=== PATIENT | female | born 1965 | race Caucasian/White ===

== ENCOUNTER 2018-05-13 10:07 | Emergency (ER) | payer MEDICARE, MEDICAID, SELFPAY ==
[2018-05-13 10:21] VITALS: BP 146/110; PULSE 85; RESP 18; TEMP 36.4; O2SAT 96
--- NOTE | 2018-05-13 11:25 | DI.RAD_ITS ---
SYMPTOMS/DIAGNOSIS: FEVER, COUGH PA AND LATERAL CHEST: The heart is normal in size. The lungs are clear. The mediastinal structures and pleura appear intact. CONCLUSION: Normal chest.
--- NOTE | 2018-05-13 11:46 | ED.GENADUL_ITS ---
Discharge Plan Disposition Patient Disposition: HOME Condition: Stable Discharge Details Chief Complaint: RespSymp Clinical Impression: Infection, respiratory tract Primary Care Provider: Jo Valles ED Provider: Jeremias Rocha Home Meds and New Rx's Prescriptions: New prednisone 20 mg tablet 20 mg PO DAILY Qty: 8 RF: 0 doxycycline hyclate 100 mg tablet 100 mg PO BID Qty: 14 RF: 0 benzonatate 200 mg capsule 200 mg PO TID PRN (Reason: cough) Qty: 30 RF: 0 Continue medroxyprogesterone [Depo-Provera] 150 MG/1 ML suspension 150 mg IM Q 12 WEEKS Qty: 1 RF: 0 nicotine [Nicoderm CQ] 1 EACH patch 24 hour 1 ea Transdermal DAILY RF: 0 methadone 10 MG/ML concentrate 70 mg PO DAILY RF: 0 losartan 25 MG tablet 25 mg PO QAM Qty: 30 RF: 0 epinephrine [EpiPen] 0.3 MG/0.3 ML auto-injector 0.3 mg IJ DAILY PRN PRNQty: 1 RF: 0 Discontinued prednisone 20 MG tablet 40 mg PO DAILY Qty: 14 RF: 0 Discharge Instructions Instructions: Upper Respiratory Infection (ED), Acute Bronchitis (ED) Additional Instructions: Return to the emergency department immediately for any new or significant worsening of symptoms. Referrals: Jo Vlales [Primary Care Provider] - (If not improving over the next couple days please follow-up with your primary care in 1 week.) Discharge Data Discharge Date/Time-TO BE ENTERED AT DEPARTURE: 05/13/18 13:08 Medical Decision Making Patient presenting to the emergency department for chief complaint of cold symptoms for the last 10 days. She states over the last 48 hours she has noticed significant worsening of symptoms, productive sputum with color change, and chest discomfort. [id number] cough suppressants which have not helped. Physical exam is unremarkable with no focal findings within the lungs and otherwise nondiagnostic. Concern for pneumonia versus bronchitis does exist so chest x-ray was ordered. Pending results patient given updraft DuoNeb. After review of radiological imaging that shows clear lung sounds there is still concerned given patient's worsening of condition along with patient then stating that she recently had a procedure done with a neck biopsy. there are no emergent findings within the HEENT exam. Patient placed on doxycycline, Tessalon Perles, and steroids encouraged to return for any new or worsening symptoms otherwise to follow-up with primary care provider if not improving by the end of the antibiotics. After discussion of diagnosis and plan of care patient has no further needs, questions, or concerns and states clear understanding to return to the emergency department for any worsening symptoms. HPI General Mode of arrival: ambulatory . Date/Time Provider Initiated Documentation: 05/13/18 10:49 . Limitations to Documentation: no limitations . Information obtained by: patient . History of Present Illness 53 year old F presents to the emergency department with the chief complaint of cough, described as moderate, with intensity rated at 6. Quality is described as aching, and is localized to the chest. Patient reports no radiation. Patient started experiencing this day(s) (10) and it has been constant. No relieving factors improve symptom(s), No exacerbating factors reported . Patient did receive the following treatments prior to arrival, other (otc cough medication) Related Data Home Medications Medication Instructions Recorded Confirmed medroxyprogesterone [Depo-Provera] 150 mg IM Q 12 WEEKS #1 vial 01/23/14 methadone 70 mg PO DAILY 11/28/15 08/28/17 nicotine [Nicoderm CQ] 1 ea TRANSDERMAL DAILY script 11/17/16 08/28/17 epinephrine [EpiPen] 0.3 mg IJ DAILY PRN PRN #1 08/28/17 auto.injct losartan 25 mg PO QAM #30 tab 08/28/17 benzonatate 200 mg PO TID PRN #30 cap 05/13/18 doxycycline hyclate 100 mg PO BID #14 tab 05/13/18 prednisone 20 mg PO DAILY #8 tab 05/13/18 Previous Rx's Medication Instructions Recorded epinephrine [EpiPen] 0.3 mg IJ DAILY PRN PRN #1 08/28/17 auto.injct losartan 25 mg PO QAM #30 tab 08/28/17 benzonatate 200 mg PO TID PRN #30 cap 05/13/18 doxycycline hyclate 100 mg PO BID #14 tab 05/13/18 prednisone 20 mg PO DAILY #8 tab 05/13/18 Allergies Allergy/AdvReac Type Severity Reaction Status Date / Time Penicillins Allergy Intermediate Hives, Unverified 05/13/18 10:28 nausea General Stated Complaint: RespSymp CELETSE: 3 Review of Systems Constitutional Reports chills, Reports difficulty sleeping (Due to coughing), Reports fatigue, Reports fever(s) and Reports malaise ENT Reports hoarseness, Reports nasal congestion, Reports sinus pressure and Reports sore throat Cardiovascular Denies dyspnea Respiratory Denies dyspnea Musculoskeletal Denies joint swelling Integumentary/Breasts Denies rash Endocrine Reports fatigue PFSH Social History Smoking/Tobacco Use Status: Current every day Surgical History Cholecystectomy Exam Const General: cooperative, comfortable and no acute distress Orientation: alert, awake and oriented x3 HENMT Head: normal to inspection Ears: hearing grossly normal bilaterally Mouth: oral mucosae normal Throat: abnormal tonsil bilaterally erythema (mild) Eyes General: appearance normal, both eyes and all related structures Conjunctivae: conjunctivae normal Sclera: sclerae normal Neck Neck: normal visual inspection, full ROM, no lymphadenopathy, meningismus present and no JVD Resp Effort & Inspection: normal respiratory effort, able to speak in complete sentences, no audible wheezes, cough Quality of cough: actively coughing and not labored Auscultation: clear to auscultation bilaterally Cardio Rate: regular rate Rhythm: regular rhythm Heart Sounds: S1 normal and S2 normal Skin General skin exam: no rashes or lesions noted and dry skin Rashes: no rashes Neuro General: alert, awake, oriented x3 and gait normal Course Vital Signs Temperature 36.4 C L 05/13/18 10:21 Pulse 85 05/13/18 10:21 Respiratory Rate 18 05/13/18 10:21 Blood Pressure 146/110 H 05/13/18 10:21 Pulse Oximetry 96 05/13/18 10:21 Temperature 36.4 C L 05/13/18 10:21 Temperature Source Skin 05/13/18 10:21 Pulse 85 05/13/18 10:21 Respiratory Rate 18 05/13/18 10:21 Blood Pressure 146/110 H 05/13/18 10:21 Blood Pressure Position Sitting 05/13/18 10:21 Pulse Oximetry 96 05/13/18 10:21 Oxygen Delivery Method Room Air 05/13/18 10:21 Oxygen Flow Rate 0 05/13/18 10:21 Pain Level 6 05/13/18 10:21 Comment 05/13/18 10:21
[2018-05-13] MEDS: Albuterol HFA 8 GM 60 PUFF INH IH (12:50)
[2018-05-13] MEDS: predniSONE 20 MG TAB 60 MG PO (12:50)
[2018-05-13] MEDS: Doxycycline Hyclate 100 MG CAP PO (12:50)
[2018-05-13 13:07] VITALS: BP 138/80; PULSE 88; RESP 18; TEMP 36.8
== END 2018-05-13 13:08 | disposition home or self-care (01) ==
PROVIDERS: Emergency Provider Nurse Practitioner Family; PCP Nurse Practitioner Family
DX: J22 Unspecified acute lower respiratory infection (principal); F17.210 Nicotine dependence, cigarettes, uncomplicated; I10 Essential (primary) hypertension
CPT/HCPCS: 94640; 99283; 71046; J7512

== ENCOUNTER 2018-09-06 09:24 | Emergency (ER) | payer MEDICARE, MEDICAID, SELFPAY ==
[2018-09-06 09:30] VITALS: BP 184/90; PULSE 92; RESP 20; TEMP 36.6; O2SAT 97
--- NOTE | 2018-09-06 09:48 | ED.GENADUL_ITS ---
Discharge Plan Disposition Patient Disposition: HOME Condition: Stable Discharge Details Chief Complaint: Vascular Clinical Impression: Pain in wrist Primary Care Provider: Jo Valles ED Provider: Joy Cota Home Meds and New Rx's Prescriptions: Continued nicotine [Nicoderm CQ] 1 EACH patch 24 hour 1 ea Transdermal DAILY RF: 0 methadone 10 MG/ML concentrate 70 mg PO DAILY RF: 0 epinephrine [EpiPen] 0.3 MG/0.3 ML auto-injector 0.3 mg IJ DAILY PRN PRNQty: 1 RF: 0 hydrochlorothiazide 25 mg Tablet 25 mg PO DAILY RF: 0 losartan 25 MG tablet 100 mg PO QAM RF: 0 Discharge Instructions Instructions: Arthralgia (ED), Tendinitis (ED) Additional Instructions: Please return immediately to the emergency department if you develop any new or worsening symptoms or if you become otherwise concerned. It is extremely important that you make an appointment to be seen by your primary care doctor soon as possible in follow-up for this visit. Referrals: Jo Valles [Primary Care Provider] - Discharge Data Discharge Date/Time-TO BE ENTERED AT DEPARTURE: 09/06/18 11:30 Medical Decision Making Amaya Salcedo is a 53 y/o woman with with right wrist and thumb pain since shoveling 4 days ago. On exam patient is well and nontoxic appearing. She has tenderness over the right radial wrist and right thenar eminence without edema, skin changes, or limited range of motion. Doubt fracture. Concern for tendinitis, possible overuse injury. Exam/history is not consistent with septic arthritis, DVT, other acute emergent life-threatening process. Plan for x-rays. X-rays reviewed and interpreted by myself in conjunction with radiology: No acute process. Plan for wrist brace for comfort, outpatient follow-up with PCP. I had a lengthy discussion with the patient regarding return to emergency department precautions, home care, and importance of outpatient follow-up with her PCP. She verbalizes understanding of the plan and is amenable. Medical Records Medical records reviewed: Yes I reviewed the patient's medical records. HPI General Mode of arrival: ambulatory . Date/Time Provider Initiated Documentation: 09/06/18 09:45 . Limitations to Documentation: no limitations . Information obtained by: patient, RN notes reviewed and old records reviewed . HPI Narrative: Amaya Salcedo is a 53-year-old woman with history of hypertension, rheumatoid arthritis not currently on any medication, with right wrist pain. Patient reports that 4 days she was shoveling, and has noticed pain in her right wrist since that time. She did not have any known injury during shoveling. She reports the pain is at the radial aspect of her wrist and radiates into the base of her thumb. It is worse with movement of her wrist. Patient reports that she also noticed that the veins in her right hand seem to be more prominent in the veins in her left hand since her wrist pain started. Denies any other pain, fevers, rash, swelling of the arm, shortness of breath, cough, vomiting, diarrhea, any joint swelling. No recent illness. Has been eating and drinking as usual. Related Data Home Medications Medication Instructions Recorded Confirmed methadone 70 mg PO DAILY 11/28/15 09/06/18 nicotine [Nicoderm CQ] 1 ea TRANSDERMAL DAILY script 11/17/16 09/06/18 epinephrine [EpiPen] 0.3 mg IJ DAILY PRN PRN #1 08/28/17 09/06/18 auto.injct hydrochlorothiazide 25 mg PO DAILY 09/06/18 09/06/18 losartan 100 mg PO QAM 09/06/18 09/06/18 Previous Rx's Medication Instructions Recorded epinephrine [EpiPen] 0.3 mg IJ DAILY PRN PRN #1 08/28/17 auto.injct Allergies Allergy/AdvReac Type Severity Reaction Status Date / Time Penicillins Allergy Intermediate Hives, Unverified 09/06/18 09:33 nausea General Stated Complaint: Vascular CELESTE: 3 Review of Systems Review of Systems Constitutional: denies fevers Eyes: denies eye pain ENT: denies facial pain, dental pain, sore throat Cardiovascular: denies chest pain Respiratory: denies SOB, cough GI: denies abdominal pain, vomiting, diarrhea : denies flank pain MSK: Reports right wrist pain denies other arthralgias, back pain, neck pain, myalgias Skin: denies rash Neuro: denies headaches, numbness, weakness PFSH Surgical History Cholecystectomy Social History Smoking and Tabacco status: Current every day Exam Narrative Exam Narrative: Constitutional: well and [id number], pleasant, conversing normally HENT: head atraumatic/normocephalic/normal inspection, mucous membranes moist Eyes: conjunctiva normal, sclera normal, pupils 3mm b/l Neck: no stridor, normal ROM, trachea midline Resp: normal work of breathing, LCTAB Cardio: normal rate, normal rhythm, no murmur appreciated Skin: warm, dry, normal color, no rash Neuro: alert, not altered, grossly non-focal, normal tone Ext: Normal inspection of bilateral upper extremity extremities, no edema of the right upper extremity. Tenderness over the right radial wrist there is diffuse, tenderness over the thenar eminence. No skin changes, no effusion. I do not appreciate any asymmetry in the right hand veins compared to the left. Full range of motion of the right wrist and right thumb however ranging does cause some pain. Normal painless range of motion of the other digits, of the elbow, and of the shoulder. No tenderness to palpation of the forearm, elbow, or humerus. Psych: normal mood, normal affect, normal behavior Course Vital Signs Temperature 36.6 C 09/06/18 09:30 Pulse 92 H 09/06/18 09:30 Respiratory Rate 20 09/06/18 09:30 Blood Pressure 184/90 H 09/06/18 09:30 Pulse Oximetry 97 09/06/18 09:30 Temperature 36.6 C 09/06/18 09:30 Temperature Source Temporal Artery Scan 09/06/18 09:30 Pulse 92 H 09/06/18 09:30 Respiratory Rate 20 09/06/18 09:30 Respiratory Effort Non-Labored 09/06/18 09:30 Blood Pressure 184/90 H 09/06/18 09:30 Pulse Oximetry 97 09/06/18 09:30 Oxygen Delivery Method Room Air 09/06/18 09:30 Oxygen Flow Rate 0 09/06/18 09:30 Pain Level 8 09/06/18 09:30
--- NOTE | 2018-09-06 09:57 | DI.RAD_ITS ---
SYMPTOM/DIAGNOSIS: RT WRIST PAIN, PAIN THENAR PROMINENCE RIGHT WRIST: Three views. No acute fracture or dislocation is seen. There are degenerative changes seen at the first carpal metacarpal joint and the articulation between the scaphoid and the quadrangular bones. The soft tissues are unremarkable. Nonspecific linear calcification is seen at the anterior aspect of the wrist. This may represent an old injury. IMPRESSION: Degenerative changes of the right wrist. RIGHT HAND: Three views. Comparison is made with 08/19/12. No acute fracture or dislocation is seen. Varying degrees of disc space narrowing and mana-articular spurring is present throughout the hand. The findings are most marked at the first carpal metacarpal joint and the interphalangeal joints of the thumb and index finger. The soft tissues are grossly unremarkable. IMPRESSION: Osteoarthritis of the right hand.
== END 2018-09-06 11:30 | disposition home or self-care (01) ==
PROVIDERS: Emergency Provider Student in an Organized Health Care Education/Training Program; PCP Nurse Practitioner Family
DX: M25.531 Pain in right wrist (principal); M79.644 Pain in right finger(s); M06.9 Rheumatoid arthritis, unspecified; Y93.H1 Activity, digging, shoveling and raking; I10 Essential (primary) hypertension
CPT/HCPCS: 29125; 99284; 73110; 73130; 99283

== ENCOUNTER 2018-09-17 08:57 | Emergency (ER) | payer MEDICARE, MEDICAID, SELFPAY ==
[2018-09-17 09:00] VITALS: BP 182/98; PULSE 84; RESP 18; TEMP 36.3; O2SAT 97
--- NOTE | 2018-09-17 09:22 | W.ED.GENAD ---
Discharge Plan Disposition Patient Disposition: HOME Condition: Stable Discharge Details Chief Complaint: Orthopedic Clinical Impression: Osteoarthritis of right wrist Primary Care Provider: Jo Valles ED Provider: Martín Sandoval Home Meds and New Rx's Prescriptions: New prednisone 20 mg tablet 40 mg PO DAILY 5 Days Qty: 10 RF: 0 Continued nicotine [Nicoderm CQ] 1 EACH patch 24 hour 1 ea Transdermal DAILY RF: 0 methadone 10 MG/ML concentrate 70 mg PO DAILY RF: 0 epinephrine [EpiPen] 0.3 MG/0.3 ML auto-injector 0.3 mg IJ DAILY PRN PRNQty: 1 RF: 0 hydrochlorothiazide 25 mg Tablet 25 mg PO DAILY RF: 0 losartan 25 MG tablet 100 mg PO QAM RF: 0 Discharge Instructions Additional Instructions: Home to rest. Continue regular medications. We have placed a referral to get you a follow-up in General medicine clinic and will also refer you to orthopedic clinic for follow-up. Take prednisone as prescribed. Elevate the arm above the level of the heart to reduce swelling. Leave splint in place for 3-5 days, then may return to your regular Velcro splint. Return to the emergency department if you develop a fever or any other acute concern. Medical Decision Making 53-year-old female with ongoing aching right wrist pain that began after shoveling a large amounts of snow and falling on the wrist and the beginning of August. She was seen on the 12th of the month had an x-ray which revealed arthritis and joint space narrowing. She was immobilized with a splint placed on NSAIDs. She returns with ongoing discomfort. No fever or chills. She does have a history of IV drug use in the past but states none currently. She is in mild distress, hypertensive, but with a reassuring exam. Must exclude underlying infectious process and screening laboratories obtained. CBC is unremarkable a white count of 6, hematocrit 43, platelets 259. Reassuring chemistries. CRP only discretely elevated. Consistent with exacerbation of osteoarthritis. Discussed with her ongoing management and will trial a brief burst of steroid. Placed in plaster splint for immobilization. She will continue splint as needed we will refer her to orthopedics for follow-up consultation. Lab Data Lab results reviewed: Yes I reviewed the patient's lab results. Laboratory Results - last 24 hr 09/17/18 09/17/18 09:43 09:43 WBC 6.52 RBC 4.81 Hgb 14.5 Hct 43.2 MCV 89.8 MCH 30.1 MCHC 33.6 RDW 13.7 Plt Count 259 MPV 8.4 Immature Gran % 0.2 Neutrophils % 52.8 Lymphocytes % 35.9 Monocytes % 9.5 Eosinophils % 1.1 Basophils % 0.5 Absolute Neutrophils 3.45 Absolute Lymphocytes 2.34 Absolute Monocytes 0.62 Absolute Eosinophils 0.07 Absolute Basophils 0.03 ESR 26 Sodium 139 Potassium 4.7 Chloride 102 Carbon Dioxide 29.6 Anion Gap 7.4 BUN 17 Creatinine 0.88 Estimated GFR/1.73 m2 >= 60.00 Glucose 100 Calcium 8.9 C-Reactive Protein 0.60 H HPI General Mode of arrival: ambulatory. Date/Time Provider Initiated Documentation: 09/17/18 08:59. Limitations to Documentation: no limitations. Information obtained by: patient. History of Present Illness 53 year old F presents to the emergency department with the chief complaint of Right wrist pain over weeks time, described as moderate, Quality is described as aching and dull, and is localized to the right and upper extremity. Patient reports no radiation. Patient started experiencing this week(s) and it has been constant. Immobilization improves symptom(s), Movement worsens symptoms . Patient notes no other symptoms.; denies fever/chills. Patient did receive the following treatments prior to arrival, NSAID Related Data Home Medications Medication Instructions Recorded Confirmed methadone 70 mg PO DAILY 11/28/15 09/17/18 nicotine [Nicoderm CQ] 1 ea TRANSDERMAL DAILY script 11/17/16 09/17/18 epinephrine [EpiPen] 0.3 mg IJ DAILY PRN PRN #1 08/28/17 09/17/18 auto.injct hydrochlorothiazide 25 mg PO DAILY 09/06/18 09/17/18 losartan 100 mg PO QAM 09/06/18 09/17/18 prednisone 40 mg PO DAILY 5 Days #10 tab 09/17/18 Previous Rx's Medication Instructions Recorded epinephrine [EpiPen] 0.3 mg IJ DAILY PRN PRN #1 08/28/17 auto.injct prednisone 40 mg PO DAILY 5 Days #10 tab 09/17/18 Allergies Allergy/AdvReac Type Severity Reaction Status Date / Time Penicillins Allergy Intermediate Hives, Unverified 09/17/18 09:06 nausea General Stated Complaint: Orthopedic CELESTE: 4 Review of Systems Review of Systems 6 systems reviewed and otherwise neg [facility] Surgical History Cholecystectomy Social History Smoking and Tabacco status: Current every day Exam Narrative Exam Narrative: GEN: awake, alert, oriented 3. Pleasant, well groomed, interactive. HEAD: Normocephalic, atraumatic ENT: Mucous membranes moist, oropharynx unremarkable, External ear exam unremarkable EYES: PERRL, EOMI NECK: Full ROM, no ANGELITO, no menigismus CHEST/RESP: Nontender, clear to auscultation bilateral, no wheeze/rhonchi/rales CARDIOVASCULAR: RRR, no murmur, rub froylan. 2+ Rad pulse bilateral EXT: Full ROM, no edema, no rash. Motor reveals intact ability to pinch thumb to index finger cross long finger over index, touch thumb to fifth digit. Sensation intact throughout. Moderately tender throughout the wrist and hand. No overlying erythema. There is a small area of ecchymosis right humerus Neuro: Grossly normal neurologic exam, conversant, interactive. Psych: Speech fluent, thoughts congruent, affect normal Course Vital Signs Temperature 36.3 C L 09/17/18 09:00 Pulse 84 09/17/18 09:00 Respiratory Rate 18 09/17/18 09:00 Blood Pressure 182/98 H 09/17/18 09:00 Pulse Oximetry 97 09/17/18 09:00 Temperature 36.3 C L 09/17/18 09:00 Temperature Source Temporal Artery Scan 09/17/18 09:00 Pulse 84 09/17/18 09:00 Respiratory Rate 18 09/17/18 09:00 Respiratory Effort Non-Labored 09/17/18 09:05 Blood Pressure 182/98 H 09/17/18 09:00 Blood Pressure Position Sitting 09/17/18 09:00 Pulse Oximetry 97 09/17/18 09:00 Oxygen Delivery Method Room Air 09/17/18 09:00 Oxygen Flow Rate 0 09/17/18 09:00 Pain Level 8 09/17/18 09:07
--- NOTE | 2018-09-17 09:25 | ED.GENADUL_ITS ---
Discharge Plan Disposition Patient Disposition: HOME Condition: Stable Discharge Details Chief Complaint: Orthopedic Clinical Impression: Osteoarthritis of right wrist Primary Care Provider: Jo Valles ED Provider: Martín Sandoval Home Meds and New Rx's Prescriptions: New prednisone 20 mg tablet 40 mg PO DAILY 5 Days Qty: 10 RF: 0 Continued nicotine [Nicoderm CQ] 1 EACH patch 24 hour 1 ea Transdermal DAILY RF: 0 methadone 10 MG/ML concentrate 70 mg PO DAILY RF: 0 epinephrine [EpiPen] 0.3 MG/0.3 ML auto-injector 0.3 mg IJ DAILY PRN PRNQty: 1 RF: 0 hydrochlorothiazide 25 mg Tablet 25 mg PO DAILY RF: 0 losartan 25 MG tablet 100 mg PO QAM RF: 0 Discharge Instructions Additional Instructions: Home to rest. Continue regular medications. We have placed a referral to get you a follow-up in General medicine clinic and will also refer you to orthopedic clinic for follow-up. Take prednisone as prescribed. Elevate the arm above the level of the heart to reduce swelling. Leave splint in place for 3-5 days, then may return to your regular Velcro splint. Return to the emergency department if you develop a fever or any other acute concern. Medical Decision Making 53-year-old female with ongoing aching right wrist pain that began after shoveling a large amounts of snow and falling on the wrist and the beginning of August. She was seen on the 12th of the month had an x-ray which revealed arthritis and joint space narrowing. She was immobilized with a splint placed on NSAIDs. She returns with ongoing discomfort. No fever or chills. She does have a history of IV drug use in the past but states none currently. She is in mild distress, hypertensive, but with a reassuring exam. Must exclude underlying infectious process and screening laboratories obtained. CBC is unremarkable a white count of 6, hematocrit 43, platelets 259. Reassuring chemistries. CRP only discretely elevated. Consistent with exacerbation of osteoarthritis. Discussed with her ongoing management and will trial a brief burst of steroid. Placed in plaster splint for immobilization. She will continue splint as needed we will refer her to orthopedics for follow-up consultation. Lab Data Lab results reviewed: Yes I reviewed the patient's lab results. Laboratory Results - last 24 hr 09/17/18 09/17/18 09:43 09:43 WBC 6.52 RBC 4.81 Hgb 14.5 Hct 43.2 MCV 89.8 MCH 30.1 MCHC 33.6 RDW 13.7 Plt Count 259 MPV 8.4 Immature Gran % 0.2 Neutrophils % 52.8 Lymphocytes % 35.9 Monocytes % 9.5 Eosinophils % 1.1 Basophils % 0.5 Absolute Neutrophils 3.45 Absolute Lymphocytes 2.34 Absolute Monocytes 0.62 Absolute Eosinophils 0.07 Absolute Basophils 0.03 ESR 26 Sodium 139 Potassium 4.7 Chloride 102 Carbon Dioxide 29.6 Anion Gap 7.4 BUN 17 Creatinine 0.88 Estimated GFR/1.73 m2 >= 60.00 Glucose 100 Calcium 8.9 C-Reactive Protein 0.60 H HPI General Mode of arrival: ambulatory . Date/Time Provider Initiated Documentation: 09/17/18 08:59 . Limitations to Documentation: no limitations . Information obtained by: patient . History of Present Illness 53 year old F presents to the emergency department with the chief complaint of Right wrist pain over weeks time, described as moderate, Quality is described as aching and dull, and is localized to the right and upper extremity. Patient reports no radiation. Patient started experiencing this week(s) and it has been constant. Immobilization improves symptom(s), Movement worsens symptoms . Patient notes no other symptoms.; denies fever/chills. Patient did receive the following treatments prior to arrival, NSAID Related Data Home Medications Medication Instructions Recorded Confirmed methadone 70 mg PO DAILY 11/28/15 09/17/18 nicotine [Nicoderm CQ] 1 ea TRANSDERMAL DAILY script 11/17/16 09/17/18 epinephrine [EpiPen] 0.3 mg IJ DAILY PRN PRN #1 08/28/17 09/17/18 auto.injct hydrochlorothiazide 25 mg PO DAILY 09/06/18 09/17/18 losartan 100 mg PO QAM 09/06/18 09/17/18 prednisone 40 mg PO DAILY 5 Days #10 tab 09/17/18 Previous Rx's Medication Instructions Recorded epinephrine [EpiPen] 0.3 mg IJ DAILY PRN PRN #1 08/28/17 auto.injct prednisone 40 mg PO DAILY 5 Days #10 tab 09/17/18 Allergies Allergy/AdvReac Type Severity Reaction Status Date / Time Penicillins Allergy Intermediate Hives, Unverified 09/17/18 09:06 nausea General Stated Complaint: Orthopedic CELESTE: 4 Review of Systems Review of Systems 6 systems reviewed and otherwise neg [facility] History Cholecystectomy Social History Smoking and Tabacco status: Current every day Exam Narrative Exam Narrative: GEN: awake, alert, oriented 3. Pleasant, well groomed, interactive. HEAD: Normocephalic, atraumatic ENT: Mucous membranes moist, oropharynx unremarkable, External ear exam unremarkable EYES: PERRL, EOMI NECK: Full ROM, no AGNELITO, no menigismus CHEST/RESP: Nontender, clear to auscultation bilateral, no wheeze/rhonchi/rales CARDIOVASCULAR: RRR, no murmur, rub froylan. 2+ Rad pulse bilateral EXT: Full ROM, no edema, no rash. Motor reveals intact ability to pinch thumb to index finger cross long finger over index, touch thumb to fifth digit. Sensation intact throughout. Moderately tender throughout the wrist and hand. No overlying erythema. There is a small area of ecchymosis right humerus Neuro: Grossly normal neurologic exam, conversant, interactive. Psych: Speech fluent, thoughts congruent, affect normal Course Vital Signs Temperature 36.3 C L 09/17/18 09:00 Pulse 84 09/17/18 09:00 Respiratory Rate 18 09/17/18 09:00 Blood Pressure 182/98 H 09/17/18 09:00 Pulse Oximetry 97 09/17/18 09:00 Temperature 36.3 C L 09/17/18 09:00 Temperature Source Temporal Artery Scan 09/17/18 09:00 Pulse 84 09/17/18 09:00 Respiratory Rate 18 09/17/18 09:00 Respiratory Effort Non-Labored 09/17/18 09:05 Blood Pressure 182/98 H 09/17/18 09:00 Blood Pressure Position Sitting 09/17/18 09:00 Pulse Oximetry 97 09/17/18 09:00 Oxygen Delivery Method Room Air 09/17/18 09:00 Oxygen Flow Rate 0 09/17/18 09:00 Pain Level 8 09/17/18 09:07
[2018-09-17 09:57] LABS: Abs Immature Grans 0.01 k/cumm (0.0-0.09); Absolute Basophil Count 0.03 k/cumm (0.0-0.2); Absolute Eosinophil Count 0.07 k/cumm (0.0-0.7); Absolute Lymphocyte Count 2.34 k/cumm (1.2-3.4); Absolute Monocyte Count 0.62 k/cumm (0.11-0.7); Absolute Neutrophil Count 3.45 k/cumm (1.2-6.7); Basophils % 0.5; Eosinophils % 1.1; HCT 43.2 % (36.0-46.0); HGB 14.5 g/dL (12.0-15.5); Immature Grans % 0.2; Lymphocytes % 35.9; Mean Corp. HGB Concentration 33.6 g/dL (32.0-36.0); Mean Corpuscular Hemoglobin 30.1 pg (27.0-33.0); Mean Corpuscular Volume 89.8 fL (80-95); Mean Platelet Volume 8.4 fL (8.0-11.0); Monocytes % 9.5; Neutrophils % 52.8; Platelet Count 259 x1000/uL (130-400); RBC 4.81 m/cumm (4.00-5.20); RBC Distribution Width 13.7 % (11.7-14.6); White Blood Cell Count 6.52 k/cumm (4.4-10.8)
[2018-09-17 10:07] LABS: Anion Gap 7.4 mmol/L (3-11); BUN 17 mg/dL (7-18); CO2 29.6 mmol/L (21.0-32.0); CREATININE 0.88 mg/dL (0.55-1.02); Calcium 8.9 mg/dL (8.5-10.1); Chloride 102 mmol/L (98-107); Glucose 100 mg/dL (70-100); Potassium 4.7 mmol/L (3.5-5.1); Sodium 139 mmol/L (136-145)
[2018-09-17 10:31] LABS: ESR 26 MM/HR (0-30)
[2018-09-17 11:10] VITALS: BP 160/94; PULSE 80; RESP 18; TEMP 37.1; O2SAT 97
--- NOTE | 2018-09-19 08:29 | PDOC.ERCMPRO ---
Care Management Progress Note 09/19-Dr. Cota requested assistance with a PCP (Reena) f/u anytime, patient states unable to get into provider office, needs meds refilled. Referral faxed to [facility] this am.
== END 2018-09-17 11:14 | disposition home or self-care (01) ==
PROVIDERS: Emergency Provider Emergency Medicine; PCP Nurse Practitioner Family
DX: M19.031 Primary osteoarthritis, right wrist (principal)
CPT/HCPCS: 29125; 36415; 80048; 85652; 99283; 85025; 86140; L3650

== ENCOUNTER 2018-09-25 13:38 | Emergency (ER) | payer MEDICARE, MEDICAID, SELFPAY ==
[2018-09-25 13:41] VITALS: BP 161/77; PULSE 85; RESP 20; TEMP 36.7; O2SAT 98
--- NOTE | 2018-09-25 13:58 | DI.RAD_ITS ---
SYMPTOM/DIAGNOSIS: SHOULDER AND LATERAL WRIST PAIN RIGHT SHOULDER: There are degenerative changes of the glenohumeral joint. No fracture or dislocation is seen. There are mild degenerative changes of the AC joint. IMPRESSION: Degenerative changes. No acute abnormality. RIGHT WRIST: No fracture or dislocation is seen. There are degenerative changes of the distal radial ulnar joint as well as at the first carpal metacarpal joint. No bony erosions are seen.
[2018-09-25] MEDS: Lidocaine 5% Patch 1 PATCH TP (14:09)
--- NOTE | 2018-09-25 15:08 | DI.VRAD_ITS ---
EXAM: XR Right Shoulder Complete, 2 or More Views EXAM DATE/TIME: 09/25/2018 2:25 PM CLINICAL HISTORY: 53 years old, female; Pain; Wrist; Right; Patient HX: HX chronic arthritis TECHNIQUE: XR Right shoulder complete 2 or more views. COMPARISON: CR RIGHT SHOULDER COMPLETE 11/13/2016 9:14 AM FINDINGS: Degenerative arthritis of the shoulder joint. No acute fracture. No abnormal calcifications. Soft tissues unremarkable. IMPRESSION: Degenerative arthritis of the glenohumeral joint. Dictated and Authenticated by: Tavares Garrett MD. Ordering:OANH Valdovinos MD
--- NOTE | 2018-09-25 15:08 | DI.VRAD_ITS ---
EXAM: XR Right Wrist Complete, 3 or more Views EXAM DATE/TIME: 09/25/2018 2:00 PM CLINICAL HISTORY: 53 years old, female; Pain; Wrist; Right; Patient HX: Pain, atraumatic. TECHNIQUE: XR Right wrist 3 or more views. COMPARISON: CR XR wrist RT complete 09/06/2018 10:14 AM FINDINGS: Mild degenerative arthritis of the first carpal metacarpal joint. No acute fracture. Soft tissues unremarkable. IMPRESSION: Degenerative arthritis of the first carpal metacarpal joint. Dictated and Authenticated by: Tavares Garrett MD. Ordering:OANH Valdovinos MD
[2018-09-25 15:33] VITALS: BP 161/77; PULSE 85; RESP 20; TEMP 36.7; O2SAT 98
--- NOTE | 2018-09-25 15:33 | ED.GENADUL_ITS ---
Discharge Plan Disposition Patient Disposition: HOME Condition: Good Discharge Details Chief Complaint: Orthopedic Clinical Impression: Chronic wrist pain Primary Care Provider: Jo Valles ED Provider: Bonifacio Mitchell Home Meds and New Rx's Prescriptions: No Action nicotine [Nicoderm CQ] 1 EACH patch 24 hour 1 ea Transdermal DAILY RF: 0 methadone 10 MG/ML concentrate 70 mg PO DAILY RF: 0 epinephrine [EpiPen] 0.3 MG/0.3 ML auto-injector 0.3 mg IJ DAILY PRN PRNQty: 1 RF: 0 hydrochlorothiazide 25 mg Tablet 25 mg PO DAILY RF: 0 losartan 25 MG tablet 100 mg PO QAM RF: 0 Discharge Instructions Instructions: Wrist Injury (ED) Additional Instructions: Please continue to use a thumb spica at all times until you follow-up with the orthopedic doctor Dr. Velazquez. Please use Tylenol and Motrin for control of your pain. Please make sure to follow-up with her private care provider as soon as possible for reassessment. If you notice any worsening of your symptoms, or any new symptoms such as vomiting, diarrhea, fever, chills, shortness of breath, chest pain, numbness, weakness, or fainting , please return immediately to the emergency department for reevaluation. Please follow up with your primary care provider as soon as possible for reassessment and reevaluation. As always, it was a pleasure participating in your medical care today. Referrals: Jo Valles [Primary Care Provider] - Discharge Data Discharge Date/Time-TO BE ENTERED AT DEPARTURE: 09/25/18 15:37 Medical Decision Making This is a 53-year-old female who is on chronic methadone, has hypertension, and chronic arthritis, who presents today for persistent right wrist pain, with some associated tingling on the forearm, some radiation towards her shoulder. She denies any cardiac components of diaphoresis, chest pain, shortness of breath, exertional components, nausea vomiting or diarrhea. Physical exam demonstrates mild tenderness over the right anatomical snuffbox. Worse with movement. There is also atypical sensation noted between the medial aspect of the fourth digit lateral aspect of the fifth digit. Please refer to physical exam for specific findings. Additionally the patient repetitively complains of swelling in her forearm, however measurement of both forearms demonstrate identical size measurements. If anything the left forearm is actually 4 mm wider than the right. Physical exam demonstrates no other significant abnormalities. Because of the location of the patient's pain a repeat x-ray was ordered specifically with a scaphoid view, and per virtual radiology there is no evidence of acute fracture, dislocation, or occult fracture. With no evidence of acute fracture, relatively unremarkable physical exam aside for the slightly atypical two-point discrimination abnormality in the right hand, I do not feel that any emergent surgical treatment is indicated. Patient does have a close follow-up with the orthopedic surgeon in 5 days, I recommended to the patient that she continues this. Because of the location of the patient's pain we will place her in a thumb spica until she is able to follow-up with orthopedics. With no evidence of compartment syndrome, significant neurovascular compromise, her scaphoid fracture on x-ray, I feel she can be safely discharged home with close follow-up with the orthopedic surgeon. We discussed red flags which return the patient understands. I have extensively reviewed the treatment plan and discharge instructions with the patient. I have addressed all patient concerns at this time. The patient was made aware of what symptoms to monitor for that would warrant a return to the emergency department. Discussed the plan with the patient, they demonstrate verbal understanding and agreement with our assessment and plan at this time. FINDINGS: Degenerative arthritis of the shoulder joint. No acute fracture. No abnormal calcifications. Soft tissues unremarkable. IMPRESSION: Degenerative arthritis of the glenohumeral joint. Dictated and Authenticated by: Tavares Garrett MD. FINDINGS: Mild degenerative arthritis of the first carpal metacarpal joint. No acute fracture. Soft tissues unremarkable. IMPRESSION: Degenerative arthritis of the first carpal metacarpal joint. Dictated and Authenticated by: Tavares Garrett MD. HPI General Date/Time Provider Initiated Documentation: 09/25/18 13:40 . HPI Narrative: This is a 53-year-old female with a past medical history of methadone use, arthritis, and depression. She presents today for evaluation of right wrist pain. Patient states that roughly a month ago she fell and had pain in her right wrist. She was initially seen in the ER, had negative x-rays, and was discharged home. She came back a few weeks later without having followed up with her orthopod or PCP, which point she had continued pain. Infectious etiology was evaluated, patient's blood counts, and infection markers including reactivity profile was negative for any signs indicative of an infection. She was placed in a plaster splint, and discharged home with recommended follow-up with an orthopedic surgeon. Patient states that she took off the cast yesterday as directed, and still has some continued mild pain. Pain seems to be located in the distal radius and the lateral carpals. Pain is made worse with movement. It is improved with Tylenol and Motrin. She does admit to mild tingling between some of her fingers. She also feels that some of the pain radiates up from her wrist towards her shoulder. She denies any associated chest pain, shortness of breath, diabetes, high cholesterol, or history of cardiac disease. She has no other complaints at this time. No other modifying factors. She denies any new or recent trauma. She denies any fever or chills. She has an appointment scheduled with Dr. Velazquez the orthopedic surgeon 5 days. Related Data Home Medications Medication Instructions Recorded Confirmed methadone 70 mg PO DAILY 11/28/15 09/25/18 nicotine [Nicoderm CQ] 1 ea TRANSDERMAL DAILY script 11/17/16 09/25/18 epinephrine [EpiPen] 0.3 mg IJ DAILY PRN PRN #1 08/28/17 09/25/18 auto.injct hydrochlorothiazide 25 mg PO DAILY 09/06/18 09/25/18 losartan 100 mg PO QAM 09/06/18 09/25/18 Previous Rx's Medication Instructions Recorded epinephrine [EpiPen] 0.3 mg IJ DAILY PRN PRN #1 08/28/17 auto.injct Allergies Allergy/AdvReac Type Severity Reaction Status Date / Time Penicillins Allergy Intermediate Hives, Unverified 09/25/18 13:45 nausea General Stated Complaint: Orthopedic CELESTE: 3 Review of Systems Review of Systems All systems reviewed & are unremarkable except as noted in HPI and below PFSH Social History Smoking and Tabacco status: Current every day Exam Narrative Exam Narrative: 1.Const: Well-nourished, Well-developed, appearing stated age 2.Eyes: PERRL, no conjunctival injection, and symmetrical lids. 3.ENT: Atraumatic external nose and ears. Moist MM. Neck: Symmetric, trachea midline, No thyromegaly. 4.CVS: +S1/S2, No murmurs or gallops. Peripheral pulses 2+ and equal in all extremities. Brisk capillary refill in all extremities. 5.RESP: Unlabored respiratory effort. Clear to auscultation bilaterally. No wheezes rales or rhonchi 6.GI: Soft, Nontender/Nondistended, No hepatosplenomegaly. No guarding or rebound. 7.MSK: Normocephalic/Atraumatic, Extremities w/o deformity. No cyanosis or clubbing, Normal movement of all extremities. Symmetrically palpable radial and ulnar pulses. Capillary refill <2 seconds to all digits. Intact sensation to light touch of the radial, median and ulnar nerves demonstrated by testing in the dorsal web space of the thumb, the distal palmar aspect of the index finger, and the lateral surface of the fifth finger. Very atypical two-point discrimination is noted. Patient demonstrates notable two-point discrimination up to 5 mm in the thumb, second and third fingers. However two-point discrimination is notably atypical on the lateral aspect of the fifth digit medial aspect of the fourth digit. He is decreased to roughly 7 mm in these areas, additionally patient feels the sensation referred to the dorsal aspect of the fingers. Intact motor function of the radial, median and ulnar nerves demonstrated by strength of extension of the isolated distal joint of the index finger, hand advertising operations coordinator, and spreading of the 2nd through 5th digits. Intact recurrent median nerve as demonstrated by ability to move thumb fully through opposition, abduction and flexion. Mild tenderness over the snuffbox in the right wrist. Patient also complains of tingling over the forearm, however she demonstrates good sensation throughout the entirety of the forearm. She also complains of swelling of her right forearm, however the circumference is identical to the left forearm. No significant tenderness with movement of the elbow or the shoulder. No other abnormalities to the upper extremity. 8.Skin: Warm, Dry. No rashes or lesions. 9.Neuro: distribution associate II-XII grossly intact. Sensation grossly intact, no focal neurologic deficits. 10.Psych: (AAO) x3. Appropriate mood and affect Course Vital Signs Temperature 36.7 C 09/25/18 13:41 Pulse 85 09/25/18 13:41 Respiratory Rate 20 09/25/18 13:41 Blood Pressure 161/77 H 09/25/18 13:41 Pulse Oximetry 98 09/25/18 13:41 Temperature 36.7 C 09/25/18 13:41 Temperature Source Temporal Artery Scan 09/25/18 13:41 Pulse 85 09/25/18 13:41 Respiratory Rate 20 09/25/18 13:41 Respiratory Effort Non-Labored 09/25/18 13:41 Blood Pressure 161/77 H 09/25/18 13:41 Blood Pressure Position Sitting 09/25/18 13:41 Pulse Oximetry 98 09/25/18 13:41 Oxygen Delivery Method Room Air 09/25/18 13:41 Oxygen Flow Rate 0 09/25/18 13:41 Pain Level 7 09/25/18 13:41
== END 2018-09-25 15:37 | disposition home or self-care (01) ==
PROVIDERS: Emergency Provider Student in an Organized Health Care Education/Training Program; PCP Nurse Practitioner Family
DX: M25.531 Pain in right wrist (principal); G89.29 Other chronic pain; R20.2 Paresthesia of skin; I10 Essential (primary) hypertension
CPT/HCPCS: 29125; 99283; 73030; 73110; L3807

== ENCOUNTER → 2018-09-30 09:24 | Outpatient (BNVA) | payer MEDICARE, MEDICAID, SELFPAY | PROVIDERS: PCP Nurse Practitioner Family; Referring Provider Nurse Practitioner Family; Visit Provider Student in an Organized Health Care Education/Training Program | DX: M18.11 Unilateral primary osteoarthritis of first carpometacarpal joint, right hand (principal); M25.331 Other instability, right wrist; M19.031 Primary osteoarthritis, right wrist | CPT/HCPCS: 20600; 99203; 99214; J1030 ==

== ENCOUNTER → 2018-10-17 10:46 | Outpatient (BNVA) | payer MEDICARE, MEDICAID, SELFPAY | PROVIDERS: PCP Nurse Practitioner Family; Referring Provider Nurse Practitioner Family; Visit Provider Student in an Organized Health Care Education/Training Program | DX: M18.11 Unilateral primary osteoarthritis of first carpometacarpal joint, right hand (principal); M19.031 Primary osteoarthritis, right wrist | CPT/HCPCS: 99213 ==

== ENCOUNTER 2018-12-23 12:03 | Outpatient (CLI) | payer MEDICARE, MEDICAID, SELFPAY ==
[2018-12-27 07:29] LABS: HCV RNA Detection Quantitative Undetected IU/mL (UNDECT)
== END 2018-12-23 12:23 ==
PROVIDERS: PCP Nurse Practitioner Family; Visit Provider Nurse Practitioner Family
DX: R76.8 Other specified abnormal immunological findings in serum (principal)
CPT/HCPCS: 36415; 87522

== ENCOUNTER 2019-02-08 09:07 | Emergency (ER) | payer MEDICARE, MEDICAID, SELFPAY ==
[2019-02-08 09:21] VITALS: BP 170/83; PULSE 80; RESP 16; TEMP 35.8; O2SAT 96
--- NOTE | 2019-02-08 09:25 | W.ED.GENAD ---
Discharge Plan Disposition Patient Disposition: HOME Condition: Stable Discharge Details Chief Complaint: EyeProblem Clinical Impression: Conjunctivitis, Dermatitis, eyelid Primary Care Provider: Issac Monk ED Provider: Leticia Ingram Home Meds and New Rx's Prescriptions: New methylprednisolone [Medrol (Michael)] 4 mg tablets,dose pack See Rx Instructions .ROUTE .COMPLEX Qty: 21 RF: 0 Continued nicotine [Nicoderm CQ] 1 EACH patch 24 hour 1 ea Transdermal DAILY RF: 0 methadone 10 MG/ML concentrate 70 mg PO DAILY RF: 0 epinephrine [EpiPen] 0.3 MG/0.3 ML auto-injector 0.3 mg IJ DAILY PRN PRNQty: 1 RF: 0 hydrochlorothiazide 25 mg Tablet 25 mg PO DAILY RF: 0 losartan 25 MG tablet 100 mg PO QAM RF: 0 docusate sodium [Colace] 100 mg Capsule 1 mg PO DAILY RF: 0 Discharge Instructions Instructions: Dermatitis (ED), Conjunctivitis (ED) Additional Instructions: Apply 1/2 inch ribbon ointment in both eyes 4 times daily for 5 days. Stop any lotions, make-up or soaps that may be irritating to your eyes. Take the steroids until finished. Follow-up with your primary care doctor or eye doctor in 1 week for reevaluation. Return immediately to the emergency department if you develop any worsening or new concerning symptoms. Discharge Data Discharge Date/Time-TO BE ENTERED AT DEPARTURE: 02/08/19 09:55 Discharge Physician: Leticia Ingram Medical Decision Making 53-year-old female who presents with bilateral eye irritation, itching, redness, yellow discharge, worse in the right eye for the past few days. Denies fever, blurry vision, headache, dizziness, contact use or known injury or foreign body sensation. Right eye conjunctival irritation and tearing. Right upper and lower eyelid erythema and edema with scaling noted. No foreign bodies noted with inspection or eyelid eversion bilaterally. No trauma noted. PERRLA. EOMI bilaterally. No pain with EOM b/l. Appears consistent likely with a bacterial conjunctivitis which may have been due to frequent rubbing and bacterial contamination. She seems to have a possible contact dermatitis of the right eye due to frequent rubbing. This does not appear to be consistent with cellulitis but rather a dermatitis. Tube of erythromycin given and applied here. Will send with a prescription for Medrol Dosepak to help with local inflammation. Patient has an eye doctor in [place]. She is instructed to follow-up with them for reevaluation and to return here at any time if worse. HPI General Mode of arrival: ambulatory. Date/Time Provider Initiated Documentation: 02/08/19 09:13. Limitations to Documentation: no limitations. Information obtained by: patient. HPI Narrative: Pt is a 53yo F who presents to the ED with a complaint of bilateral eye irritation and itching and yellow discharge for the past few days. Patient states her daughter recently and she has been crying frequently and rubbing her eyes. She states the symptoms are worse in her right eye. She states in the morning she is awakening with yellowish goop in her eyes. She states this morning she noted that the area around her right eye is swollen and red. She denies any blurry vision, headache, dizziness, fever. She does not wear contacts. She denies any known exposure to conjunctivitis. She denies any other new exposures. She denies any known injury or foreign body in her eye. Related Data Home Medications Medication Instructions Recorded Confirmed methadone 70 mg PO DAILY 11/28/15 02/08/19 nicotine [Nicoderm CQ] 1 ea TRANSDERMAL DAILY script 11/17/16 02/08/19 epinephrine [EpiPen] 0.3 mg IJ DAILY PRN PRN #1 08/28/17 02/08/19 auto.injct hydrochlorothiazide 25 mg PO DAILY 09/06/18 02/08/19 losartan 100 mg PO QAM 09/06/18 02/08/19 docusate sodium [Colace] 1 mg PO DAILY 02/08/19 02/08/19 methylprednisolone [Medrol (Michael)] See Rx Instructions .ROUTE 02/08/19 .COMPLEX #21 dose pk Previous Rx's Medication Instructions Recorded epinephrine [EpiPen] 0.3 mg IJ DAILY PRN PRN #1 08/28/17 auto.injct methylprednisolone [Medrol (Michael)] See Rx Instructions .ROUTE 02/08/19 .COMPLEX #21 dose pk Allergies Allergy/AdvReac Type Severity Reaction Status Date / Time Penicillins Allergy Intermediate Hives, Unverified 02/08/19 09:24 nausea bees Allergy Uncoded 02/08/19 09:24 egg yolks Allergy Uncoded 02/08/19 09:24 General Stated Complaint: EyeProblem CELESTE: 4 Review of Systems Review of Systems All systems reviewed & are unremarkable except as noted in HPI and below Constitutional Reports as per HPI, Denies chills and Denies fever(s) Eyes Denies blurry vision, Reports eye discharge, Reports irritation and Reports itchy eyes ENT Denies dizziness, Denies sore throat and Denies throat swelling Cardiovascular Denies chest pain and Denies dyspnea Respiratory Denies cough and Denies dyspnea Gastrointestinal Denies abdominal pain, Denies diarrhea and Denies vomiting Genitourinary Denies hematuria and Denies dysuria Musculoskeletal Denies back pain and Denies numbness Integumentary/Breasts Denies lesions and Denies rash Neurologic Denies dizziness, Denies focal weakness and Denies numbness Allergic/Immunologic Reports itchy eyes and Denies throat swelling [facility] Medical History Arthritis of right wrist (Inactive) Depression (Chronic) Rheumatoid arthritis (Chronic) Unspecified essential hypertension (Inactive 06/30/12) Surgical History Cholecystectomy History of bunionectomy (Acute) History of knee surgery (Acute) Social History Smoking/Tobacco Use Status: Current every day Drug use: Current Sobriety Do you feel safe in your relationship?: Yes Exam Const General: cooperative, healthy appearing and no acute distress HENMT Head: normal to inspection Ears: hearing grossly normal bilaterally, external ears normal and TM's normal bilaterally General nose exam: external nose normal Face and sinus: normal facial exam Mouth: oral mucosae normal Throat: posterior oropharynx normal Eyes General: appearance normal, both eyes and all related structures Periorbital: periorbital findings abnormal right periorbital swelling, periorbital tenderness (minimal), periorbital erythema and other (scaling); no ecchymosis and no crepitus Conjunctivae: conjunctival abnormality right conjunctival injection Pupils: PERRL EOM: EOM intact bilaterally Other: no foreign bodies noted w/ inspection/eyelid eversion b/l. Neck Neck: normal visual inspection Lymphatic: no lymphadenopathy noted Resp Effort & Inspection: normal respiratory effort and able to speak in complete sentences Cardio Rate: regular rate Skin General skin exam: no rashes or lesions noted Neuro General: alert, awake and oriented x3 Motor: muscle tone normal throughout Extrem General: normal to inspection and full ROM Psych Appearance: grossly normal Affect: normal affect Course Vital Signs Temperature 96.4 F L 02/08/19 09:21 Pulse 80 02/08/19 09:21 Respiratory Rate 16 02/08/19 09:21 Blood Pressure 170/83 H 02/08/19 09:21 Pulse Oximetry 96 02/08/19 09:21 Temperature 96.4 F L 02/08/19 09:21 Temperature Source Skin 02/08/19 09:21 Pulse 80 02/08/19 09:21 Respiratory Rate 16 02/08/19 09:21 Respiratory Effort Non-Labored 02/08/19 09:21 Blood Pressure 170/83 H 02/08/19 09:21 Blood Pressure Position Sitting 02/08/19 09:21 Pulse Oximetry 96 02/08/19 09:21 Oxygen Delivery Method Room Air 02/08/19 09:21 Oxygen Flow Rate 0 02/08/19 09:21 Pain Level 8 02/08/19 09:21
[2019-02-08] MEDS: Erythromycin Ophth Oint 3.5 GM TUBE OU (09:50)
== END 2019-02-08 09:55 | disposition home or self-care (01) ==
PROVIDERS: Emergency Provider Physician Assistant; PCP Nurse Practitioner Family
DX: H10.33 Unspecified acute conjunctivitis, bilateral (principal); H01.113 Allergic dermatitis of right eye, unspecified eyelid
CPT/HCPCS: 99283

== ENCOUNTER → 2019-02-13 09:03 | Outpatient (BNVA) | payer MEDICARE, MEDICAID, SELFPAY | PROVIDERS: PCP Nurse Practitioner Family; Referring Provider Nurse Practitioner Family; Visit Provider Student in an Organized Health Care Education/Training Program | DX: M25.331 Other instability, right wrist (principal); M18.11 Unilateral primary osteoarthritis of first carpometacarpal joint, right hand; M25.431 Effusion, right wrist | CPT/HCPCS: 99213 ==

== ENCOUNTER 2019-03-16 10:31 | Outpatient (CLI) | payer MEDICARE, MEDICAID, SELFPAY ==
--- NOTE | 2019-03-16 10:33 | DI.CT_ITS ---
SYMPTOM/DIAGNOSIS: RT WRIST PAIN, ? SCAPHOID FX M25.331 CT WRIST: Multiple contiguous axial images of the right wrist were obtained. Sagittal and coronal reformatted images were evaluated on the Siemens work station. There is a comminuted fracture of the scaphoid. There is a fracture component which predominantly involves the distal pole. There does appear to be some increased sclerosis of the fracture fragments noted distally. There also appears to be a nondisplaced fracture involving the posterior and proximal pole of the scaphoid. There are also osseous fragments seen anterior to the lunate. The donor site is indeterminate but may arise from the distal and anterior aspect of the lunate. No other fracture or dislocation is appreciated. The bones appear normally mineralized. No soft tissue masses are appreciated. IMPRESSION: 1. Comminuted fracture involving both the proximal and distal poles of the scaphoid. There is some increased sclerosis of the distal fracture fragments. 2. Tiny osseous fragments seen anterior to the lunate suspicious for small avulsed fractures.
== END 2019-03-16 10:51 ==
PROVIDERS: PCP Nurse Practitioner Family; Visit Provider Student in an Organized Health Care Education/Training Program
DX: M25.331 Other instability, right wrist (principal); M25.531 Pain in right wrist; S62.014A Nondisplaced fracture of distal pole of navicular [scaphoid] bone of right wrist, initial encounter for closed fracture; S62.034A Nondisplaced fracture of proximal third of navicular [scaphoid] bone of right wrist, initial encounter for closed fracture
CPT/HCPCS: 73200

== ENCOUNTER → 2019-03-20 09:41 | Outpatient (BNVA) | payer MEDICARE, MEDICAID, SELFPAY | PROVIDERS: PCP Nurse Practitioner Family; Referring Provider Nurse Practitioner Family; Visit Provider Student in an Organized Health Care Education/Training Program | DX: S62.034K Nondisplaced fracture of proximal third of navicular [scaphoid] bone of right wrist, subsequent encounter for fracture with nonunion (principal); X58.XXXD Exposure to other specified factors, subsequent encounter; M25.331 Other instability, right wrist; M25.431 Effusion, right wrist; M18.11 Unilateral primary osteoarthritis of first carpometacarpal joint, right hand | CPT/HCPCS: 99213 ==

== ENCOUNTER 2020-04-10 01:35 | Outpatient (CLI) | payer MEDICARE, MEDICAID, SELFPAY ==
--- NOTE | 2020-04-10 08:36 | DI.RAD_ITS ---
EXAM: XR WRIST RT COMPLETE CLINICAL HISTORY: SCAPHOID NON UNION ADVANCED COLLAPSE OF WRIST,S/P CARPECTOMY,ASSESS ALIGNME TECHNIQUE: COMPARISON: CT CT upper extremity RT wo from 03/16/2019 FINDINGS: Four views were obtained. There appears to have been a prior proximal row carpectomy. No previous p ostsurgical films available for comparison. Alignment of the distal carpal row appears fairly well m aintained. The capitate is aligned with the ulnar aspect of the radial articular surface. Mild dege nerative changes noted at the multangular metacarpal joints. Nonspecific soft tissue calcifications/ ossific radiodensities present at the surgical site. No other significant bony abnormality seen. IMPRESSION: RADIATION DOSE DELIVERED: Total DLP
== END 2020-04-10 01:55 ==
PROVIDERS: PCP Nurse Practitioner Family; Visit Provider Specialist/Technologist Athletic Trainer
DX: M19.031 Primary osteoarthritis, right wrist (principal); Z98.890 Other specified postprocedural states
CPT/HCPCS: 73110

== ENCOUNTER 2020-05-20 10:41 | Outpatient (CLI) | payer MEDICARE, MEDICAID, SELFPAY ==
--- NOTE | 2020-05-20 09:30 | DI.RAD_ITS ---
EXAM: XR WRIST RT COMPLETE CLINICAL HISTORY: fixed ulnar deviation after PRC TECHNIQUE: COMPARISON: CR XR WRIST RT COMPLETE from 04/10/2020 FINDINGS: Four views were obtained. There is a previous proximal carpal row resection, alignment appears essen tially unchanged in comparison with previous examination of April 10. There are moderate degen erative changes at the multangular metacarpal joints. IMPRESSION: RADIATION DOSE DELIVERED: Total DLP
== END 2020-05-20 11:01 ==
PROVIDERS: PCP Nurse Practitioner Family; Referring Provider Nurse Practitioner Family; Visit Provider Student in an Organized Health Care Education/Training Program
DX: M19.041 Primary osteoarthritis, right hand (principal); M19.031 Primary osteoarthritis, right wrist; S62.034K Nondisplaced fracture of proximal third of navicular [scaphoid] bone of right wrist, subsequent encounter for fracture with nonunion; X58.XXXD Exposure to other specified factors, subsequent encounter; Z98.890 Other specified postprocedural states
CPT/HCPCS: 99214; 73110

== ENCOUNTER → 2020-06-17 08:25 | Outpatient (BNVA) | payer MEDICARE, MEDICAID, SELFPAY | PROVIDERS: PCP Nurse Practitioner Family; Referring Provider Nurse Practitioner Family; Visit Provider Student in an Organized Health Care Education/Training Program | DX: S62.034K Nondisplaced fracture of proximal third of navicular [scaphoid] bone of right wrist, subsequent encounter for fracture with nonunion (principal); X58.XXXD Exposure to other specified factors, subsequent encounter | CPT/HCPCS: 99213 ==

== ENCOUNTER 2021-01-23 10:33 | Outpatient (REF) | payer MEDICARE, MEDICAID, SELFPAY ==
[2021-01-23 19:23] LABS: ALT 41 U/L (14-59); AST 29 U/L (15-37); Albumin 3.8 g/dL (3.4-5.0); Alkaline Phosphatase 71 U/L (46-116); Anion Gap 6.9 mmol/L (3-11); BUN 17 mg/dL (7-18); Bilirubin, Total 0.4 mg/dL (0.2-1.0); CO2 33.1 mmol/L (21.0-32.0); CREATININE 1.1 mg/dL (0.55-1.02); Calculated LDL 208 mg/dL (<100); Chloride 102 mmol/L (98-107); Cholesterol 299 mg/dL (<200); Estimated GFR 51.57 (mL/min/1.73m2); Glucose 96 mg/dL (74-106); HDL Cholesterol 37 mg/dL (40-60); Potassium 4.2 mmol/L (3.5-5.1); Sodium 142 mmol/L (136-145); Total Protein 7.3 g/dL (6.4-8.2); Triglyceride 272 mg/dL (<150)
== END 2021-01-23 10:34 | disposition home or self-care (01) ==
LOC: NCHCN 10:33
PROVIDERS: PCP Nurse Practitioner Family; Visit Provider Nurse Practitioner
DX: E78.5 Hyperlipidemia, unspecified (principal); I10 Essential (primary) hypertension; E88.81 Metabolic syndrome and other insulin resistance
CPT/HCPCS: 80053; 80061

== ENCOUNTER 2021-02-19 10:35 | Outpatient (REF) | payer MEDICARE, MEDICAID, SELFPAY ==
[2021-02-20 11:54] LABS: COVID-19 RT-PCR UVMMC Result Negative (Negative)
== END 2021-02-19 10:36 | disposition home or self-care (01) ==
LOC: LBN 10:35
PROVIDERS: PCP Nurse Practitioner Family; Visit Provider Nurse Practitioner Family
DX: Z20.822 Contact with and (suspected) exposure to COVID-19 (principal); J06.9 Acute upper respiratory infection, unspecified
CPT/HCPCS: U0003; U0005

== ENCOUNTER 2021-02-23 09:06 | Emergency (ER) | payer MEDICARE, MEDICAID, SELFPAY ==
[2021-02-23 09:10] VITALS: BP 166/88; PULSE 91; RESP 18; TEMP 36.2; O2SAT 95
--- NOTE | 2021-02-23 09:14 | W.ED.GENAD ---
Discharge Plan Disposition Patient Disposition: HOME Condition: Stable Discharge Details Clinical Impression: URI (upper respiratory infection), Pharyngitis Primary Care Provider: Issac Monk ED Provider: Mikaela Flor Home Meds and New Rx's Prescriptions: Continued diclofenac sodium 1 % gel 4 g topical QID Qty: 100 RF: 6 nicotine [Nicoderm CQ] 1 EACH patch 24 hour 1 ea Transdermal DAILY RF: 0 methadone 10 MG/ML concentrate 70 mg PO DAILY RF: 0 epinephrine [EpiPen] 0.3 MG/0.3 ML auto-injector 0.3 mg IJ DAILY PRN PRNQty: 1 RF: 0 hydrochlorothiazide 25 mg Tablet 25 mg PO DAILY RF: 0 losartan 25 MG tablet 100 mg PO QAM RF: 0 docusate sodium [Colace] 100 mg Capsule 1 mg PO DAILY RF: 0 methylprednisolone [Medrol (Michael)] 4 mg tablets,dose pack See Rx Instructions .ROUTE .COMPLEX Qty: 21 RF: 0 Discharge Instructions Instructions: Pharyngitis (ED), Upper Respiratory Infection (ED) Additional Instructions: Your rapid strep testing was negative today. Your exam is concerning for some redness in the back of your throat likely from coughing so much. You are doing an excellent job at home taking care of yourself, please continue with this as well as the recommendations outlined by your nurse practitioner, Issac Monk. Please encourage water intake. You may use honey to help soothe your throat as well as with the cough. You may also use Tylenol and ibuprofen for discomfort. If you develop fever/chills, inability stay hydrated, difficulty swallowing, shortness of breath or other new/worsening symptom please seek care urgently once again. Referrals: Issac Monk, [employer] [Primary Care Provider] - Discharge Data Discharge Date/Time-TO BE ENTERED AT DEPARTURE: 02/23/21 10:19 Medical Decision Making Patient is a pleasant 55-year-old female presents today with chief complaint of sore throat. She reports that she has had cough and URI symptoms past week. She was seen 5 days ago at urgent care and was started on azithromycin for pneumonia. She reports that she is also started on dry for left ear infection. She reports that her symptoms that regard have overall improved. However, states that she began having a scratchy throat. No difficulty swallowing. No shortness of breath. States that she has been trying to force more up with her cough and states that this does exacerbate her discomfort in her throat. Reports that she has had uvula issues historically and that she has been followed at [facility] for this in the past. On exam, patient appears nontoxic. She is very animated and does appear slightly anxious. Normal ear exam, she has some erythema on the posterior oropharynx that most consistent more with irritation. No exudate. No tonsillar swelling or uvular swelling. Lungs are clear. Rapid strep testing was negative. Discussed these findings with the patient. Advised this likely viral illness. Encourage hydration. Advised to use honey. Tylenol and ibuprofen as needed for discomfort. Return precautions were discussed. Advise follow-up with primary care in 1 week for reevaluation. All of her questions and concerns were addressed and she is agreement this plan. HPI General Mode of arrival: ambulatory. Date/Time Provider Initiated Documentation: 02/23/21 09:14. Limitations to Documentation: no limitations. Information obtained by: patient and RN notes reviewed. History of Present Illness 55 year old F presents to the emergency department with the chief complaint of sore throat, described as moderate, with intensity rated at 6. Quality is described as other (scratchy), Patient reports no radiation. Patient started experiencing this hour(s) (woke with discomfort this AM) and it has been constant. No relieving factors improve symptom(s), No exacerbating factors reported . Patient notes no other symptoms.. Patient did receive the following treatments prior to arrival, none Related Data Home Medications Medication Instructions Recorded Confirmed methadone 70 mg PO DAILY 11/28/15 02/23/21 nicotine [Nicoderm CQ] 1 ea TRANSDERMAL DAILY script 11/17/16 02/23/21 epinephrine [EpiPen] 0.3 mg IJ DAILY PRN PRN #1 08/28/17 02/23/21 auto.injct hydrochlorothiazide 25 mg PO DAILY 09/06/18 02/23/21 losartan 100 mg PO QAM 09/06/18 02/23/21 docusate sodium [Colace] 1 mg PO DAILY 02/08/19 02/23/21 methylprednisolone [Medrol (Michael)] See Rx Instructions .ROUTE 02/08/19 02/23/21 .COMPLEX #21 dose pk diclofenac sodium 1 % topical gel 4 g TOPICAL QID #100 g 05/21/20 06/17/20 Previous Rx's Medication Instructions Recorded epinephrine [EpiPen] 0.3 mg IJ DAILY PRN PRN #1 08/28/17 auto.injct methylprednisolone [Medrol (Michael)] See Rx Instructions .ROUTE 02/08/19 .COMPLEX #21 dose pk diclofenac sodium 1 % topical gel 4 g TOPICAL QID #100 g 05/21/20 Allergies Allergy/AdvReac Type Severity Reaction Status Date / Time Penicillins Allergy Intermediate Hives, Unverified 02/23/21 09:18 nausea bees Allergy Uncoded 02/23/21 09:18 egg yolks Allergy Uncoded 02/23/21 09:18 General CELESTE: 4 Review of Systems Constitutional Constitutional: Reports as per HPI and Denies headache(s) Eyes Eyes: Reports as per HPI, Denies eye discharge and Denies irritation ENT Ears, Nose, Mouth, and Throat: Reports as per HPI and Denies headache(s) Cardiovascular Cardiovascular: Reports as per HPI, Denies chest pain and Denies dyspnea Respiratory Respiratory: Reports as per HPI and Denies dyspnea Gastrointestinal Gastrointestinal: Reports as per HPI, Denies abdominal pain, Denies change in bowel habits, Denies nausea and Denies vomiting Integumentary/Breasts Skin/Breast: Reports as per HPI and Denies rash Neurologic Neurologic: Reports as per HPI and Denies headache(s) [facility] Medical History (Updated 02/23/21 @ 10:07 by KELY Sotomayor) Arthritis of right wrist Depression Rheumatoid arthritis Unspecified essential hypertension (06/30/12) Surgical History Cholecystectomy History of bunionectomy History of knee surgery Social History Smoking/Tobacco Use Status: Current every day Tobacco Type: cigarettes Smoking risk assessment performed?: Yes Alcohol Intake: current Alcohol Intake frequency: holidays/special occasions only Alcohol type: wine Drug use: Current Sobriety Substance use type: former substance user Do you feel safe at home: Yes Do you feel safe in your relationship?: Yes Exam Const General: cooperative, healthy appearing, comfortable, no acute distress, well developed and well groomed Nutritional Appearance: average body habitus and well nourished Orientation: alert and awake [facility] Head: normal to inspection, normocephalic and atraumatic Ears: hearing grossly normal bilaterally, external ears normal and TM's normal bilaterally General nose exam: external nose normal and nares normal Face and sinus: normal facial exam, sinuses nontender and face symmetric Mouth: oral mucosae normal, lip normal, tongue normal, oropharynx normal, moist mucous membranes, no trismus and No restricted motion Teeth and gingiva: dentition normal Throat: posterior oropharynx abnormal (erythematous, no swelling or exudate), tonsils normal and uvula midline Eyes General: appearance normal, both eyes and all related structures Neck Neck: normal visual inspection, full ROM, no lymphadenopathy and no meningeal signs Resp Effort & Inspection: normal respiratory effort, able to speak in complete sentences and no respiratory distress Auscultation: clear to auscultation bilaterally, no rales, no rhonchi and no wheezes Cardio Rate: regular rate Rhythm: regular rhythm Heart Sounds: S1 normal and S2 normal Skin General skin exam: no rashes or lesions noted Neuro General: patient alert and patient awake Cognition: normal cognition Speech: speech normal Gait: normal gait Psych Appearance: grossly normal and well kempt Mental Status: mental status grossly normal Speech and Movement: speech and movement normal
== END 2021-02-23 10:19 | disposition home or self-care (01) ==
PROVIDERS: Emergency Provider Physician Assistant; PCP Nurse Practitioner Family
DX: J06.9 Acute upper respiratory infection, unspecified (principal); J02.9 Acute pharyngitis, unspecified
CPT/HCPCS: 87880; 99282; 87081

== ENCOUNTER 2021-03-09 09:30 | Emergency (ER) | payer MEDICARE, MEDICAID, SELFPAY ==
[2021-03-09] VITALS (26 sets, daily range): BP systolic 125–193; BP diastolic 69–95; PULSE 60–100; RESP 10–24; TEMP 36; O2SAT 92–97
--- NOTE | 2021-03-09 09:30 | RT.EKG_ITS ---
APPROVED REPORT Exam: Resting ECG Reason for Exam: chest pressure Patient Location: E HR:80 bpm ECG Measurements Heart Rate 80 AXIS LA 137 P 64 QRSd 88 QRS 45 QT 376 T 41 QTc 435 Conclusion Sinus rhythm...normal P axis, V-rate 60- 99
--- NOTE | 2021-03-09 09:49 | ED.GENADUL_ITS ---
Discharge Plan Disposition Patient Disposition: HOME Condition: Stable Discharge Details Clinical Impression: Chest pain Primary Care Provider: Issac Monk ED Provider: Wyatt Henderson Home Meds and New Rx's Prescriptions: Continued diclofenac sodium 1 % gel 4 g topical QID Qty: 100 RF: 6 nicotine [Nicoderm CQ] 1 EACH patch 24 hour 1 ea Transdermal DAILY RF: 0 methadone 10 MG/ML concentrate 70 mg PO DAILY RF: 0 epinephrine [EpiPen] 0.3 MG/0.3 ML auto-injector 0.3 mg IJ DAILY PRN PRNQty: 1 RF: 0 hydrochlorothiazide 25 mg Tablet 25 mg PO DAILY RF: 0 losartan 25 MG tablet 100 mg PO QAM RF: 0 docusate sodium [Colace] 100 mg Capsule 1 mg PO DAILY RF: 0 methylprednisolone [Medrol (Michael)] 4 mg tablets,dose pack See Rx Instructions .ROUTE .COMPLEX Qty: 21 RF: 0 albuterol sulfate 90 mcg/actuation HFA aerosol inhaler 2 inh INHALATION Q4-5H PRNRF: 0 Discharge Instructions Instructions: Chest Pain (ED) Additional Instructions: your blood work and cat scan did not show any concerning findings today follow up with your primary care provider as soon as possible if you feel more ill, have severe worsening pain or difficulty breathing return to the emergency department Medical Decision Making 55 yo female with hx of smoking, who comes in with chief complaint of left sided chest and back pain since yesterday. She was treated for a pneumonia per patient with a zpack which she finished which made her feel better other than she continues to have a productive cough without fevers. She states yesterday she has had left lateral chest and upper back pain. STates sitting up and taking deep breaths makes it worse. No abdomen pain, diaphoresis, n/v. She appears well on exam in no distress. She is speaking in full sentences. No rashes or palpable abnormalities of the left lateral upper back or chest. No midline tenderness or pain. No murmurs, no leg swelling. Suspect pleurisy vs chest wall pain given it is positional. Her heart score is 3, will obtain troponin. Wells is moderate so will pursue cta to evaluate for possible pe given she has a hr of 110 on my exam and the pain is pleuritic. No tearing back pain and normal vascular exam so doubt dissection patients labs and imaging unremarkable and she remains stable, only has pain with palpation to the lateral chest, suspect musculoskeletal pain. Will continue to monitor and obtain delta troponin and ecg pt remains stable without complaints now, delta troponin and ecg unchanged, she is stable for d/c, advised to f/u with pcp and return precautions given Differential Diagnosis Differential Diagnosis: chest wall pain, nstemi, pe, pleurisy Medical Records Medical records reviewed: Yes I reviewed the patient's medical records. ECG Data Attestation: I personally reviewed and interpreted this ECG (s) as follows: Prior ECG tracings: not available for review Interpretation: sinus rhythm, rate of 80, pr 137, qtc [address] t wave ischemic findings sinus rhythm, rate of 60, no acute st t wave ischemic findings HPI General Mode of arrival: ambulatory . Date/Time Provider Initiated Documentation: 03/09/21 09:31 . Limitations to Documentation: no limitations . Information obtained by: patient . History of Present Illness 55 year old F presents to the emergency department with the chief complaint of left sided chest pain, described as moderate, Patient started experiencing this day(s) (1) and it has been constant. No relieving factors improve symptom(s), Other factors that worsen symptoms (deep breaths) . Patient notes cough. Patient did receive the following treatments prior to arrival, none Related Data Home Medications Medication Instructions Recorded Confirmed methadone 70 mg PO DAILY 11/28/15 03/09/21 nicotine [Nicoderm CQ] 1 ea TRANSDERMAL DAILY script 11/17/16 03/09/21 epinephrine [EpiPen] 0.3 mg IJ DAILY PRN PRN #1 08/28/17 03/09/21 auto.injct hydrochlorothiazide 25 mg PO DAILY 09/06/18 03/09/21 losartan 100 mg PO QAM 09/06/18 03/09/21 docusate sodium [Colace] 1 mg PO DAILY 02/08/19 03/09/21 methylprednisolone [Medrol (Michael)] See Rx Instructions .ROUTE 02/08/19 02/23/21 .COMPLEX #21 dose pk diclofenac sodium 1 % topical gel 4 g TOPICAL QID #100 g 05/21/20 06/17/20 albuterol sulfate 2 inh INHALATION Q4-5H PRN 03/09/21 03/09/21 Previous Rx's Medication Instructions Recorded epinephrine [EpiPen] 0.3 mg IJ DAILY PRN PRN #1 08/28/17 auto.injct methylprednisolone [Medrol (Michael)] See Rx Instructions .ROUTE 02/08/19 .COMPLEX #21 dose pk diclofenac sodium 1 % topical gel 4 g TOPICAL QID #100 g 05/21/20 Allergies Allergy/AdvReac Type Severity Reaction Status Date / Time Penicillins Allergy Intermediate Hives, Unverified 03/09/21 10:06 nausea bees Allergy Uncoded 03/09/21 10:06 egg yolks Allergy Uncoded 03/09/21 10:06 General CELESTE: 4 Review of Systems All systems reviewed & are unremarkable except as noted in HPI and below Constitutional Constitutional: Denies chills, Denies fever(s) and Denies weakness Gastrointestinal Gastrointestinal: Denies abdominal pain, Denies nausea and Denies vomiting Musculoskeletal Musculoskeletal: Denies joint swelling Neurologic Neurologic: Denies weakness [facility] Medical History (Updated 03/09/21 @ 11:48 by Wyatt Henderson MD) Arthritis of right wrist Depression Rheumatoid arthritis Unspecified essential hypertension (06/30/12) Surgical History Cholecystectomy History of bunionectomy History of knee surgery Social History Smoking/Tobacco Use Status: Current every day Tobacco Type: cigarettes Smoking risk assessment performed?: Yes Alcohol Intake: current Alcohol Intake frequency: holidays/special occasions only Alcohol type: wine Drug use: Current Sobriety Substance use type: former substance user Do you feel safe at home: Yes Do you feel safe in your relationship?: Yes Exam Const General: no acute distress Orientation: alert HENMT Head: normal to inspection Ears: external ears normal General nose exam: external nose normal Mouth: moist mucous membranes Eyes General: appearance normal, both eyes and all related structures Neck Neck: normal visual inspection Chest Chest: normal inspection of the chest Resp Effort & Inspection: normal respiratory effort and able to speak in complete sentences Cardio Rate: regular rate Skin General skin exam: no rashes or lesions noted Neuro General: patient alert and patient oriented x3 Extrem General: normal to inspection Psych Mental Status: mental status grossly normal
--- NOTE | 2021-03-09 09:56 | DI.CT_ITS ---
Exam(s) CT CHEST PE CTA EXAM: CT CHEST PE CTA CLINICAL HISTORY: pleuritic left sided chest pain. TECHNIQUE: Imaging Protocol: CT angiography of the chest was performed using pulmonary embolus shavon col. Multi planar reconstructions were performed. CONTRAST MATERIAL: Intravenous: Omnipaque 350 Contrast volume: 100 cc COMPARISON: CT RENAL COLIC WO CONTRAST from 12/19/2011 CR XR CHEST 2V PA LATERAL from 05/13/2018 FINDINGS: CHEST: PULMONARY ARTERIES: There are no intraluminal filling defects to suggest acute pulmonary emboli. LUNGS: There are no confluent infiltrates nor evidence of pulmonary infarction. Scarring in the ante rior right lung base noted.. There are no pleural effusions. MEDIASTINUM: There is no hilar nor mediastinal adenopathy. Visualized thyroid unremarkable. CARDIAC: Heart size is upper normal. There is no pericardial effusion.Caliber of the thoracic aorta is within normal limits. There is no significant shift of the interventricular septum. PARTIALLY VISUALIZED UPPERMOST ABDOMEN: Gallbladder surgically absent. OSSEOUS: No significant osseous lesions.. IMPRESSION: 1. No evidence of acute pulmonary emboli. No evidence of pulmonary infarction.No pleural effusions. RADIATION DOSE DELIVERED: 547.9mGy.cm Total DLP DATA REPOSITORY: All CT scans at this facility are submitted to the National Radiology Data Registry (NRDR) Dose Index Registry (DIR) with the [employer] (ACR). RADIATION OPTIMIZATION: All CT scans at this facility use at least one of these dose optimization te chniques: automated exposure control; mA and/or kV adjustment per patient size (includes targeted exa ms where dose is matched to clinical indication); or iterative reconstruction.
[2021-03-09] MEDS: Aspirin 81 MG CHEW 324 MG CH (10:17)
[2021-03-09 10:28] LABS: Source Nasal/Nares
[2021-03-09 10:31] LABS: Abs Immature Grans 0.03 10^3/uL (0.0-0.06); Absolute Basophil Count 0.04 10^3/uL (0.0-0.2); Absolute Eosinophil Count 0.11 10^3/uL (0.0-0.7); Absolute Lymphocyte Count 2.75 10^3/uL (1.2-3.4); Absolute Monocyte Count 0.69 10^3/uL (0.1-0.8); Absolute Neutrophil Count 3.18 10^3/uL (1.2-6.7); Basophils % 0.6; Eosinophils % 1.6; HCT 41.5 % (36.0-46.0); HGB 13.8 g/dL (11.2-15.7); Immature Grans % 0.4; Lymphocytes % 40.4; MCHC 33.3 % (32.0-36.0); MCV 90.2 fL (80-95); MPV 8.4 fL (8.0-11.0); Monocytes % 10.1; Neutrophils % 46.9; Nucleated RBC 0 %; Platelet Count 275 10^3/uL (130-400); RDW-SD 42.8 fL
[2021-03-09 10:46] LABS: ALT 30 U/L (14-59); AST 21 U/L (15-37); Albumin 3.9 g/dL (3.4-5.0); Alkaline Phosphatase 57 U/L (46-116); Anion Gap 8.1 mmol/L (3-11); BUN 19 mg/dL (7-18); Bilirubin, Total 0.4 mg/dL (0.2-1.0); CO2 31.9 mmol/L (21.0-32.0); CREATININE 1.2 mg/dL (0.55-1.02); Calcium 9.4 mg/dL (8.5-10.1); Chloride 100 mmol/L (98-107); Estimated GFR 46.64 (mL/min/1.73m2); Glucose 102 mg/dL (74-106); Potassium 3.6 mmol/L (3.5-5.1); Sodium 140 mmol/L (136-145); Total Protein 7.8 g/dL (6.4-8.2)
[2021-03-09] MEDS: Omnipaque 350 MG/ML 100 ML BTL IJ (10:46)
[2021-03-09] MEDS: Normal Saline - Diluent 50 ML VIAL IV (10:47)
[2021-03-09 10:49] LABS: Troponin I < 0.05 ng/mL (<0.06)
--- NOTE | 2021-03-09 11:21 | DI.VRAD_ITS ---
PROCEDURE INFORMATION: Exam: CTA Chest With Contrast Exam date and time: 03/09/2021 10:51 AM Age: 55 years old Clinical indication: Other: Pleuritic lt sided chest pain TECHNIQUE: Imaging protocol: Computed tomographic angiography of the chest with contrast. 3D rendering (Not supervised by radiologist): MIP and/or 3D reconstructed images were created by the technologist. Radiation optimization: All CT scans at this facility use at least one of these dose optimization techniques: automated exposure control; mA and/or kV adjustment per patient size (includes targeted exams where dose is matched to clinical indication); or iterative reconstruction. Contrast material: OMNIPAQUE 350; Contrast volume: 100 ml; Contrast route: INTRAVENOUS (IV); COMPARISON: CR XR CHEST 2V PA LATERAL 05/13/2018 11:18 AM FINDINGS: Pulmonary arteries: Normal. No pulmonary emboli. Aorta: Unremarkable. No aortic aneurysm. No aortic dissection. Lungs: Unremarkable. No consolidation. No masses. Pleural spaces: Unremarkable. No pneumothorax. No pleural effusion. Heart: Unremarkable. No cardiomegaly. No pericardial effusion. Lymph nodes: Unremarkable. No enlarged lymph nodes. Bones/joints: Unremarkable. No acute fracture. Soft tissues: Unremarkable. IMPRESSION: No acute findings. Dictated and Authenticated by: Ayo Buitrago MD. Ordering:SONYA Schneider MD
[2021-03-09 11:26] LABS: COVID-19 PCR Negative (Negative)
--- NOTE | 2021-03-09 13:15 | RT.EKG_ITS ---
APPROVED REPORT Exam: Resting ECG Reason for Exam: pain Patient Location: E HR:60 bpm ECG Measurements Heart Rate 60 AXIS DE 148 P 34 QRSd 93 QRS 20 QT 448 T 28 QTc 447 Conclusion Sinus rhythm...normal P axis, V-rate 60- 99
[2021-03-09 13:42] LABS: Troponin I < 0.05 ng/mL (<0.06)
== END 2021-03-09 14:40 | disposition home or self-care (01) ==
PROVIDERS: Emergency Provider Emergency Medicine; PCP Nurse Practitioner Family
DX: R07.81 Pleurodynia (principal); F17.210 Nicotine dependence, cigarettes, uncomplicated; Z20.822 Contact with and (suspected) exposure to COVID-19; Z03.818 Encounter for observation for suspected exposure to other biological agents ruled out
CPT/HCPCS: 36415; 71275; 80053; 87635; 93005; 99285; 84484; 85025; 93010; J3490

== ENCOUNTER 2021-08-28 18:30 | Outpatient (REF) | payer MEDICARE, MEDICAID, SELFPAY ==
[2021-08-28 18:27] LABS: HCT 40.4 % (36.0-46.0); MCH 29.8 pg (27.0-33.0); MCHC 32.2 % (32.0-36.0); MCV 92.7 fL (80-95); MPV 8.9 fL (8.0-11.0); Platelet Count 341 10^3/uL (130-400); RBC 4.36 10^6/uL (3.93-5.22); RDW 13.2 % (11.7-14.6); RDW-SD 44.8 fL; WBC 9.34 10^3/uL (4.4-10.8)
[2021-08-28 18:29] LABS: ESR 71 mm/hr (0-30)
[2021-08-28 18:34] LABS: ALT 28 U/L (14-59); AST 26 U/L (15-37); Alkaline Phosphatase 69 U/L (46-116); BUN 19 mg/dL (7-18); Bilirubin, Total 0.2 mg/dL (0.2-1.0); C-Reactive Protein 1.69 mg/dL (0.0-0.3); CREATININE 1.3 mg/dL (0.55-1.02); Calcium 9.4 mg/dL (8.5-10.1); Chloride 98 mmol/L (98-107); Estimated GFR 42.37 (mL/min/1.73m2); Glucose 109 mg/dL (74-106); Potassium 3.7 mmol/L (3.5-5.1); Sodium 138 mmol/L (136-145); Total Protein 7.9 g/dL (6.4-8.2)
== END 2021-08-28 18:31 | disposition home or self-care (01) ==
LOC: NCHCN 18:30
PROVIDERS: PCP Nurse Practitioner Family; Visit Provider Nurse Practitioner Family
DX: I88.9 Nonspecific lymphadenitis, unspecified (principal); I10 Essential (primary) hypertension; R05.3 Chronic cough
CPT/HCPCS: 80053; 85027; 85652; 86140

== ENCOUNTER 2021-09-11 00:44 | Outpatient (CLI) | payer MEDICARE, MEDICAID, SELFPAY ==
--- NOTE | 2021-09-11 | DI.RAD_ITS ---
Exam(s) XR CHEST 2V PA LATERAL EXAM: XR CHEST 2V PA LATERAL CLINICAL HISTORY: CHRONIC COUGH, R05.3, LYMPHADENITIS, I88.9, SMOKER, F17.200 TECHNIQUE: 2D digital imaging was performed of the chest. Two images were obtained. PA and lateral views were obtained. COMPARISON: CR XR CHEST 2V PA LATERAL from 05/13/2018 FINDINGS: MEDIASTINUM: Normal. HEART: Normal. PULMONARY VASCULATURE: Normal. LUNGS: Clear. PLEURAL SPACE: No pleural effusion or pneumothorax. BONE:Within normal limits for the patient's age. OTHER FINDINGS:Normal. IMPRESSION: No acute pulmonary findings. DATA REPOSITORY: RADIATION DOSE DELIVERED:
== END 2021-09-11 01:04 ==
PROVIDERS: PCP Nurse Practitioner Family; Visit Provider Nurse Practitioner Family
DX: R05.3 Chronic cough (principal); I88.9 Nonspecific lymphadenitis, unspecified; F17.200 Nicotine dependence, unspecified, uncomplicated
CPT/HCPCS: 71046

== ENCOUNTER 2021-09-11 19:41 | Outpatient (REF) | payer MEDICARE, MEDICAID, SELFPAY ==
[2021-09-11 19:18] LABS: Bilirubin Negative (Negative); Blood Moderate (Negative); Clarity Clear (Clear); Glucose Negative (Negative); Ketones Negative (Negative); Leukocyte Esterase Negative (Negative); Nitrite Negative (Negative); Specific Gravity >= 1.030 (1.005-1.025); Urobilinogen 0.2 EU/dL (Up TO 0.2); pH 5.5 (5-8)
[2021-09-11 19:28] LABS: Bacteria Negative HPF (Negative); C & S Indicated? No; Casts 0-2 Hyaline LPF (Negative); Crystals Negative HPF (Negative); Epithelial Cells Few HPF (Negative); Mucus Trace (Negative); WBC Negative HPF (0-5)
== END 2021-09-11 19:42 | disposition home or self-care (01) ==
LOC: NCHCN 19:41
PROVIDERS: PCP Nurse Practitioner Family; Visit Provider Nurse Practitioner Family
DX: R31.9 Hematuria, unspecified (principal)
CPT/HCPCS: 81003; 81015

== ENCOUNTER 2021-09-17 00:15 | Outpatient (CLI) | payer MEDICARE, MEDICAID, SELFPAY ==
--- NOTE | 2021-09-17 | DI.US_ITS ---
Exam(s) US AXILLA LT EXAM: US AXILLA LT CLINICAL HISTORY: LUMP TAIL OF LEFT BREAST TECHNIQUE: Ultrasound left axilla performed using standard protocol. COMPARISON: No exams were available for comparison FINDINGS: There is a 7 x 2.5 x 3 centimeter fluid collection with some septations corresponding to the palpable abnormality. No internal blood flow. No associated calcifications. Some internal debris. Normal appearing axillary lymph nodes. No solid masses, hypoechoic foci, areas of abnormal shadowing, or a reas of skin thickening. IMPRESSION: Elongated cystic collection in the axilla corresponding to the palpable abnormality. Findings could represent seroma, lymphangioma or abscess. Clinical correlation is recommended. DATA REPOSITORY:
--- NOTE | 2021-09-17 11:30 | DI.MAMMO_ITS ---
Exam(s) MAMMO SCREENING EXAM: MAMMO SCREENING CLINICAL HISTORY: SCREENING MAMMO (VO) Z12.31 TECHNIQUE: Mammograms were interpreted according to the usual protocol including computer analysis w [employer] CAD system, tomosynthesis and C-view imaging. COMPARISON: 2011 and 2016 FINDINGS: The breasts are composed of mainly fatty density , Breast Density category A. No suspicious masses or suspicious microcalcifications are seen. No skin thickening or abnormal axillary lymph nodes are seen. There has been no significant change from prior exams. IMPRESSION: BI-RADS Category 1, Negative mammogram Yearly screening mammography is recommended. Breast Density - Category A, fatty density. A negative radiographic report should not delay biopsy if a dominant or clinically suspicious mass is present. Up to ten percent of cancers are not identified on mammography. A negative report may reinforce clinical impression. Adenosis and dense breasts may obscure an underlying neoplasm. False positive reports average 6 to 10%. Patient will receive a letter notifying them of these results.
== END 2021-09-17 00:35 ==
PROVIDERS: PCP Nurse Practitioner Family; Visit Provider Nurse Practitioner Family
DX: N63.32 Unspecified lump in axillary tail of the left breast (principal); Z12.31 Encounter for screening mammogram for malignant neoplasm of breast
CPT/HCPCS: 76642; 77063; 77067

== ENCOUNTER → 2021-09-30 09:12 | Outpatient (BNVA) | payer MEDICARE, MEDICAID, SELFPAY | PROVIDERS: PCP Nurse Practitioner Family; Referring Provider Nurse Practitioner Family; Visit Provider Surgery | DX: R22.30 Localized swelling, mass and lump, unspecified upper limb (principal) | CPT/HCPCS: 99203; 99213 ==

== ENCOUNTER 2021-10-13 01:46 | Outpatient (CLI) | payer MEDICARE, MEDICAID, SELFPAY ==
[2021-10-13] MEDS: Omnipaque 350 MG/ML 100 ML BTL IJ (10:25)
--- NOTE | 2021-10-13 10:30 | DI.CT_ITS ---
Exam(s) CT ABDOMEN PELVIS WO/W EXAM: CT ABDOMEN PELVIS WO/W CLINICAL HISTORY: HEMATURIA R31.21 TOBACCO USE. TECHNIQUE: Imaging Protocol: Axial computed tomography images with coronal and sagittal reformatted images were created and reviewed CT UROGRAM PROTOCOL CONTRAST MATERIAL: Intravenous: Omnipaque 100cc Oral: None COMPARISON: CT CT CHEST PE CTA from 03/09/2021 FINDINGS: VISUALIZED LUNG BASES: Res markings benign-appearing right middle lobe just above the hemidiaphragm. No pleural effusions.. ABDOMEN: There is no ascites. LIVER: There are no focal hepatic lesions evident . GALLBLADDER/BILIARY: Gallbladder is surgically absent. CBD slightly prominent measuring 9 millimeter s. No evidence of calculus lower CBD and no evidence of obvious pancreatic head mass. PANCREAS: No evidence of pancreatic mass nor dilatation of the pancreatic duct. SPLEEN: Spleen is not enlarged. No obvious intrasplenic lesions. Splenic and portal veins are paten t. ADRENALS: There are no significant adrenal masses. KIDNEYS:No cysts evident. No solid renal masses. No calculi nor hydronephrosis.. Solitary nondilat ed ureter seen on each side. No duplication. The right ureter is not opacified in the lower pelvis distal to the iliac vessels, this most probably related to peristalsis. The opposite-left ureter is opacified in its entirety and appears unremarkable. There are no filling defects in the renal infund ibulum and renal pelves. ABDOMINAL AORTA: Mild fusiform dilatation the lower abdominal aorta just above the aortic bifurcation . Measures is 2 cm at this level. LYMPH NODES:There is no retroperitoneal nor paraaortic adenopathy. ABDOMINAL WALL: Fat containing midline supra and infra umbilical hernias. No bowel loops therein. N o bowel obstruction. GI: There is no evidence of bowel obstruction, free air, nor abscess. PELVIS: GI: No evidence of appendicitis.No evidence of sigmoid diverticulitis. LYMPH NODES: There is no intrapelvic nor inguinal adenopathy. REPRODUCTIVE: Yes adnexal regions appear unremarkable. No free fluid. No extraovarian adnexal raisa s evident. URINARY BLADDER: No focal findings. No bladder wall thickening. No calculi within the bladder lumen . OSSEOUS: No significant osseous lesions. IMPRESSION: 1. No evidence of renal mass or calculi. No hydronephrosis. No hydroureter. 2. No obvious focal abnormality in the urinary bladder. 3. Gallbladder surgically absent. CBD is dilated to 9 millimeters. This is probably related to caryl ent's post cholecystectomy status. There is no true dilatation of intrahepatic ducts. 4. Mild fusiform aneurysmal dilatation of the distal most abdominal aorta, measuring up to 2 cm at th is level. RADIATION DOSE DELIVERED: 3,049.08mGy.cm Total DLP DATA REPOSITORY: All CT scans at this facility are submitted to the National Radiology Data Registry (NRDR) Dose Index Registry (DIR) with the [employer] (ACR). RADIATION OPTIMIZATION: All CT scans at this facility use at least one of these dose optimization te chniques: automated exposure control; mA and/or kV adjustment per patient size (includes targeted exa ms where dose is matched to clinical indication); or iterative reconstruction.
== END 2021-10-13 02:06 ==
PROVIDERS: PCP Nurse Practitioner Family; Visit Provider Nurse Practitioner Family
DX: R31.21 Asymptomatic microscopic hematuria (principal); F17.210 Nicotine dependence, cigarettes, uncomplicated; Z90.49 Acquired absence of other specified parts of digestive tract; K42.9 Umbilical hernia without obstruction or gangrene; K83.8 Other specified diseases of biliary tract; I77.811 Abdominal aortic ectasia
CPT/HCPCS: 74178; J3490

== ENCOUNTER → 2021-10-17 10:31 | Outpatient (BNVA) | payer MEDICARE, MEDICAID, SELFPAY | PROVIDERS: PCP Nurse Practitioner Family; Referring Provider Nurse Practitioner Family; Visit Provider Physical Therapy Assistant | DX: M79.89 Other specified soft tissue disorders (principal); R22.32 Localized swelling, mass and lump, left upper limb | CPT/HCPCS: 11403 ==

== ENCOUNTER 2021-10-17 12:52 | Outpatient (REF) | payer MEDICARE, MEDICAID, SELFPAY ==
--- NOTE | 2021-10-17 11:30 | SKI_PTH ---
PATIENT: Amaya Salcedo LOC: [facility] U#:[id number] AGE/SX: 56/F ROOM: RE10/17/[address]: KELY Bush : 1965 BED: DIS: 10/17/2021 SPEC #: [id number] RECD: 10/17/21 13:04 STATUS: MISHA REQ #: [id number] BERENICE: 10/17/21 11:[address]: Ivanna Benitez DEPT: Surgical Specimen RECD BY: Carolina Canseco ENTERED: 10/17/21 13:04 SP TYPE: SEDA RODRIGUEZ DR: JULIO JACINTO NP Tissues: 1 - SKIN CYST/TAG/DEBRIDEMENT Procedures: SKIN BIOPSY LEVEL 3 Comments: [id number]
== END 2021-10-17 12:53 | disposition home or self-care (01) ==
LOC: LBN 12:52
PROVIDERS: PCP Nurse Practitioner Family; Visit Provider Physical Therapy Assistant
DX: R22.2 Localized swelling, mass and lump, trunk (principal)
CPT/HCPCS: 88304

== ENCOUNTER → 2021-10-27 08:16 | Outpatient (BNVA) | payer MEDICARE, MEDICAID, SELFPAY | PROVIDERS: PCP Nurse Practitioner Family; Referring Provider Nurse Practitioner Family; Visit Provider Physical Therapy Assistant | DX: Z48.02 Encounter for removal of sutures (principal) ==

== ENCOUNTER → 2021-10-27 08:53 | Outpatient (BNVA) | payer MEDICARE, MEDICAID, SELFPAY | PROVIDERS: PCP Nurse Practitioner Family; Referring Provider Nurse Practitioner Family; Visit Provider Nurse Practitioner Gerontology | DX: R31.29 Other microscopic hematuria (principal); N39.46 Mixed incontinence | CPT/HCPCS: 51798; 99215 ==

== ENCOUNTER 2022-01-12 11:52 | Outpatient (REF) | payer MEDICARE, MEDICAID, SELFPAY ==
[2022-01-12 15:22] LABS: ALT 23 U/L (14-59); AST 20 U/L (15-37); Albumin 4.1 g/dL (3.4-5.0); Alkaline Phosphatase 62 U/L (46-116); Anion Gap 7.5 mmol/L (3-11); BUN 22 mg/dL (7-18); Bilirubin, Total 0.4 mg/dL (0.2-1.0); CO2 30.5 mmol/L (21.0-32.0); CREATININE 1.1 mg/dL (0.55-1.02); Calcium 9.4 mg/dL (8.5-10.1); Chloride 99 mmol/L (98-107); Estimated GFR 51.38 (mL/min/1.73m2); Glucose 85 mg/dL (74-106); Potassium 4.4 mmol/L (3.5-5.1); Sodium 137 mmol/L (136-145); TSH (W/Ref FT4) 1.79 uIU/mL (0.36-3.74); Total Protein 7.6 g/dL (6.4-8.2)
== END 2022-01-12 11:53 | disposition home or self-care (01) ==
LOC: NCHCN 11:52
PROVIDERS: PCP Nurse Practitioner Family; Visit Provider Nurse Practitioner Family
DX: I10 Essential (primary) hypertension (principal); F32.9 Major depressive disorder, single episode, unspecified; N18.9 Chronic kidney disease, unspecified
CPT/HCPCS: 80053; 84443

== ENCOUNTER → 2022-01-15 02:07 | Outpatient (CLI) | payer MEDICARE, MEDICAID, SELFPAY ==
--- NOTE | 2022-01-15 | DI.RAD_ITS ---
Exam(s) XR SHOULDER RT COMPLETE 2+V EXAM: XR SHOULDER RT COMPLETE 2+V CLINICAL HISTORY: PAIN RT SHOULDER, M25.511, POST FALL 1 WK AGO. TECHNIQUE: 2D digital imaging was performed. Four views. COMPARISON: CR XR shoulder RT complete 2+V from 09/25/2018 FINDINGS: BONES: No acute fracture is present. No bony destructive lesion is seen. Subchondral cysts in glenoi d and humeral head. JOINTS: No dislocation present. Glenohumeral joint space is maintained. Prominent spurring at the g lenoid and inferior humeral head. Spurring also noted greater and lesser tuberosities. SOFT TISSUE: Normal. IMPRESSION: Degenerative changes glenohumeral joint. DATA REPOSITORY: RADIATION DOSE DELIVERED:
--- NOTE | 2022-01-15 | DI.RAD_ITS ---
Exam(s) XR WRIST LT COMPLETE EXAM: XR WRIST LT COMPLETE CLINICAL HISTORY: PAIN IN LT WRIST, M25.532, POST FALL 1 WK AGO. TECHNIQUE: 2D digital imaging was performed. Three views. COMPARISON: CR XR hand RT complete from 09/06/2018 CR XR wrist RT complete from 09/25/2018 CR XR WRIST RT COMPLETE from 05/20/2020 FINDINGS: BONES: No acute fracture is present. No bony destructive lesion is seen. JOINTS: No dislocation. Mild widening of the scapholunate distance could indicate scapholunate ligam ent disruption. There are degenerative changes at the 1st carpal metacarpal joint. There are mild d egenerative changes at the radial carpal joint. SOFT TISSUE: Normal. IMPRESSION: Degenerative changes. No acute fracture. DATA REPOSITORY: RADIATION DOSE DELIVERED:
== END ==
PROVIDERS: PCP Nurse Practitioner Family; Visit Provider Nurse Practitioner Family
DX: M25.532 Pain in left wrist (principal); M19.032 Primary osteoarthritis, left wrist; M25.511 Pain in right shoulder; M75.81 Other shoulder lesions, right shoulder
CPT/HCPCS: 73030; 73110

== ENCOUNTER → 2022-03-04 08:43 | Outpatient (BNVA) | payer MEDICARE, MEDICAID, SELFPAY | PROVIDERS: PCP Nurse Practitioner Family; Referring Provider Nurse Practitioner Family; Visit Provider Student in an Organized Health Care Education/Training Program | DX: M19.032 Primary osteoarthritis, left wrist (principal) | CPT/HCPCS: 99214 ==

== ENCOUNTER 2022-09-03 12:47 | Outpatient (REF) | payer MEDICARE, MEDICAID, SELFPAY ==
[2022-09-03 15:47] LABS: Abs Immature Grans 0.02 10^3/uL (0.0-0.06); Absolute Basophil Count 0.08 10^3/uL (0.0-0.2); Absolute Eosinophil Count 0.17 10^3/uL (0.0-0.7); Absolute Lymphocyte Count 4.26 10^3/uL (1.2-3.4); Absolute Monocyte Count 0.68 10^3/uL (0.1-0.8); Absolute Neutrophil Count 3.62 10^3/uL (1.2-6.7); Basophils % 0.9; Eosinophils % 1.9; HCT 46.2 % (36.0-46.0); Immature Grans % 0.2; Lymphocytes % 48.2; MCH 29.5 pg (27.0-33.0); MCHC 32.5 % (32.0-36.0); MCV 91 fL (80-95); MPV 8.7 fL (8.0-11.0); Monocytes % 7.7; Neutrophils % 41.1; Platelet Count 340 10^3/uL (130-400); RBC 5.08 10^6/uL (3.93-5.22); RDW 12.9 % (11.7-14.6); RDW-SD 43.6 fL; WBC 8.83 10^3/uL (4.4-10.8)
[2022-09-03 16:08] LABS: ALT 31 U/L (14-59); AST 31 U/L (15-37); Albumin 4.4 g/dL (3.4-5.0); Alkaline Phosphatase 74 U/L (46-116); Anion Gap 7.4 mmol/L (3-11); BUN 28 mg/dL (7-18); Bilirubin, Total 0.5 mg/dL (0.2-1.0); CO2 31.6 mmol/L (21.0-32.0); CREATININE 1.5 mg/dL (0.55-1.02); Calcium 9.9 mg/dL (8.5-10.1); Chloride 97 mmol/L (98-107); Estimated GFR 40.39 (mL/min/1.73m2); Glucose 125 mg/dL (74-106); Potassium 4.4 mmol/L (3.5-5.1); Sodium 136 mmol/L (136-145); Total Protein 8.6 g/dL (6.4-8.2)
== END 2022-09-03 12:48 | disposition home or self-care (01) ==
LOC: NCHCN 12:47
PROVIDERS: PCP Nurse Practitioner Family; Visit Provider Nurse Practitioner Family
DX: M25.532 Pain in left wrist (principal); I10 Essential (primary) hypertension; I88.9 Nonspecific lymphadenitis, unspecified; F19.10 Other psychoactive substance abuse, uncomplicated
CPT/HCPCS: 80053; 85025

== ENCOUNTER 2022-09-28 00:51 | Outpatient (CLI) | payer MEDICARE, MEDICAID, SELFPAY ==
--- NOTE | 2022-09-28 09:45 | DI.RAD_ITS ---
Exam(s) XR HAND LT COMPLETE EXAM: XR HAND LT COMPLETE CLINICAL HISTORY: LT HAND PAIN, M79.642, SWELLING S/P FALL 3 WEEKS AGO. TECHNIQUE: 2D digital imaging was performed. Three views. COMPARISON: CR XR wrist RT complete from 09/25/2018 CR XR WRIST LT COMPLETE from 09/28/2022 FINDINGS: No evidence of fracture. Mild narrowing of the interphalangeal joints of the fingers. Moderate mana articular spurring. No bony erosions. Degenerative changes also seen in the wrist. Prominent soft tissue swelling or at the dorsum of the wrist. 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 DATA REPOSITORY: RADIATION DOSE DELIVERED:
--- NOTE | 2022-09-28 09:45 | DI.RAD_ITS ---
Exam(s) XR WRIST LT COMPLETE EXAM: XR WRIST LT COMPLETE CLINICAL HISTORY: LT WRIST PAIN, M25.532. TECHNIQUE: 2D digital imaging was performed. Three views. COMPARISON: CR XR WRIST RT COMPLETE from 05/20/2020 CR XR WRIST LT COMPLETE from 01/15/2022 CR XR HAND LT COMPLETE from 09/28/2022 FINDINGS: No evidence of acute fracture. There is abnormal widening of the scapholunate distance consistent wit h ligament disruption. There is also abnormal sclerosis of the lunate suspicious for avascular necro sis. Cystic changes are seen within the lunate. Degenerative changes are noted at the 1st carpal me tacarpal joint and scaphoid- trapezium joints. Degenerative changes also seen at lunate capitate art iculation. Soft tissue swelling seen at the dorsal aspect of the wrist. 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 DATA REPOSITORY: RADIATION DOSE DELIVERED:
--- NOTE | 2022-09-28 10:15 | DI.MAMMO_ITS ---
Exam(s) MAMMO SCREENING EXAM: MAMMO SCREENING CLINICAL HISTORY: SCREENING, Z12.31 TECHNIQUE: Mammograms were interpreted according to the usual protocol including computer analysis w [employer] CAD system, tomosynthesis and C-view imaging. COMPARISON: 2011 through 2021 FINDINGS: The breasts are composed of mainly fatty density , Breast Density category A. No suspicious masses or suspicious microcalcifications are seen. No skin thickening or abnormal axillary lymph nodes are seen. There has been no significant change from prior exams. IMPRESSION: BI-RADS Category 1, Negative mammogram Yearly screening mammography is recommended. Breast Density - Category A, fatty density. A negative radiographic report should not delay biopsy if a dominant or clinically suspicious mass is present. Up to ten percent of cancers are not identified on mammography. A negative report may reinforce clinical impression. Adenosis and dense breasts may obscure an underlying neoplasm. False positive reports average 6 to 10%. Patient will receive a letter notifying them of these results.
--- NOTE | 2022-09-28 10:45 | DI.US_ITS ---
Exam(s) US AXILLA LT EXAM: US AXILLA LT CLINICAL HISTORY: UNSPECIFIED LUMP IN AXILLARY TAIL OF LT BREAST, N63.32, TECHNIQUE: Ultrasound left axilla performed using standard protocol. COMPARISON: No exams were available for comparison FINDINGS: The area of palpable abnormality indicated by the patient was scanned in the axilla. There is a 2.4 x 0.9 x 1.3 centimeter lymph node with thin cortex and normal fatty hilum correspondin g to the palpable abnormality. IMPRESSION: No sonographically suspicious finding. DATA REPOSITORY:
== END 2022-09-28 01:11 ==
LOC: DI 00:52
PROVIDERS: PCP Nurse Practitioner Family; Visit Provider Nurse Practitioner Family
DX: N63.32 Unspecified lump in axillary tail of the left breast (principal); M25.532 Pain in left wrist; M25.542 Pain in joints of left hand; Z12.31 Encounter for screening mammogram for malignant neoplasm of breast; S63.592A Other specified sprain of left wrist, initial encounter
CPT/HCPCS: 76642; 77063; 77067; 73110; 73130

== ENCOUNTER 2022-11-26 18:05 | Outpatient (REF) | payer MEDICARE, MEDICAID, SELFPAY ==
[2022-11-26 16:41] LABS: Abs Immature Grans 0.01 10^3/uL (0.0-0.06); Absolute Basophil Count 0.05 10^3/uL (0.0-0.2); Absolute Eosinophil Count 0.16 10^3/uL (0.0-0.7); Absolute Lymphocyte Count 2.24 10^3/uL (1.2-3.4); Absolute Monocyte Count 0.62 10^3/uL (0.1-0.8); Absolute Neutrophil Count 3.75 10^3/uL (1.2-6.7); Basophils % 0.7; Eosinophils % 2.3; HCT 39.7 % (36.0-46.0); HGB 12.8 g/dL (11.2-15.7); Immature Grans % 0.1; Lymphocytes % 32.8; MCH 29.8 pg (27.0-33.0); MCHC 32.2 % (32.0-36.0); MCV 92 fL (80-95); MPV 8.8 fL (8.0-11.0); Monocytes % 9.1; Platelet Count 304 10^3/uL (130-400); RDW 13.2 % (11.7-14.6); WBC 6.83 10^3/uL (4.4-10.8)
[2022-11-26 17:12] LABS: Anion Gap 7.4 mmol/L (3-11); BUN 20 mg/dL (7-18); C-Reactive Protein 0.95 mg/dL (0.0-0.3); CO2 31.6 mmol/L (21.0-32.0); CREATININE 1.2 mg/dL (0.55-1.02); Calcium 9.6 mg/dL (8.5-10.1); Chloride 99 mmol/L (98-107); Glucose 103 mg/dL (74-106); Potassium 4.1 mmol/L (3.5-5.1); Sodium 138 mmol/L (136-145); TSH (W/Ref FT4) 4.49 uIU/mL (0.36-3.74)
[2022-11-26 17:45] LABS: ESR 45 mm/hr (0-30)
[2022-11-26 18:23] LABS: FREE T4 0.85 ng/dL (0.76-1.46)
== END 2022-11-26 18:06 | disposition home or self-care (01) ==
LOC: NCHCN 18:05
PROVIDERS: PCP Nurse Practitioner Family; Visit Provider Nurse Practitioner Family
DX: I10 Essential (primary) hypertension (principal); F32.89 Other specified depressive episodes; I88.9 Nonspecific lymphadenitis, unspecified; K59.03 Drug induced constipation; R70.0 Elevated erythrocyte sedimentation rate
CPT/HCPCS: 80048; 85652; 84439; 84443; 85025; 86140

== ENCOUNTER 2022-12-17 01:39 | Outpatient (CLI) | payer MEDICARE, MEDICAID, SELFPAY ==
--- NOTE | 2022-12-17 07:45 | DI.US_ITS ---
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 IMPRESSION: No evidence of abdominal aortic aneurysm. DATA REPOSITORY:
--- NOTE | 2022-12-17 08:14 | DI.RAD_ITS ---
Exam(s) XR CHEST 2V PA LATERAL EXAM: XR CHEST 2V PA LATERAL CLINICAL HISTORY: WHEEZING, R06.2; H/O TOBACCO USE IN REMISSION, 787.891; [place] TECHNIQUE: 2D digital imaging was performed of the chest. Two images were obtained. PA and lateral views were obtained. COMPARISON: CR XR CHEST 2V PA LATERAL from 09/11/2021 FINDINGS: MEDIASTINUM: Normal. HEART: Normal. PULMONARY VASCULATURE: Normal. LUNGS: Clear. PLEURAL SPACE: No pleural effusion or pneumothorax. BONE:Within normal limits for the patient's age. OTHER FINDINGS:Normal. IMPRESSION: No acute pulmonary findings. DATA REPOSITORY: RADIATION DOSE DELIVERED:
--- NOTE | 2022-12-17 08:15 | DI.US_ITS ---
Exam(s) US AXILLA LT EXAM: US AXILLA LT CLINICAL HISTORY: UNSPECIFIED LUMP AXILLARY TAIL LT BREAST, N63.32; LYMPHADENITIS, I88.9 TECHNIQUE: Ultrasound left axilla performed using standard protocol. COMPARISON: US US AXILLA LT from 09/28/2022 FINDINGS: There are few sonographically benign-appearing lymph nodes in the left axilla. The largest measures 2 x 0.9 x 1.5 cm. This was previously seen. Incidental note is made of a small fluid collection harsh suring 2.4 x 0.7 x 2.2 cm at the anterior aspect adjacent to the glenohumeral joint. This is nonspec ific. No suspicious cystic or solid masses are seen. IMPRESSION: DATA REPOSITORY:
--- NOTE | 2022-12-17 09:15 | DI.CTLCSR_ITS ---
Exam(s) CT CHEST LUNG CANCER SCREEN EXAM: CT CHEST LUNG CANCER SCREEN CLINICAL HISTORY: H/O TOBACCO USE IN REMISSION LESS THAN 12 MOS, Z87.891; CA SCREENING, Z12.9 TECHNIQUE: Imaging Protocol: Axial computed tomography images with coronal and sagittal reformatted images were created and reviewed COMPARISON: CT CT CHEST PE CTA from 03/09/2021 FINDINGS: Tracheobronchial tree: Patent where visualized. Pulmonary parenchyma: Mild centrilobular emphysematous changes are present. No focal consolidating i nfiltrates. There is scarring or atelectasis in the right middle lobe. There is a calcified granulo ma in the superior segment of the right lower lobe. Lung Nodules: No noncalcified pulmonary nodules. Mediastinum and Zofia: No dominant adenopathy or fluid collection. The esophagus is unremarkable. Thyroid gland: Unremarkable. Lymph nodes: Unremarkable. Pleura: No effusion or pneumothorax. Heart: The heart is not dilated. No coronary artery calcifications are seen. No pericardial effusion . Aorta: Thoracic aorta non-dilated.There is atherosclerosis. No thoracic aortic aneurysm is seen. M aximum diameter of the thoracic ascending aorta is 3.5 cm. Maximum descending thoracic aortic diamet er is 3.0 cm. Upper abdomen: Status post cholecystectomy. Soft Tissues: Unremarkable. Bones: Within normal limits. IMPRESSION: 1. No noncalcified pulmonary nodules. 2. No evidence of a thoracic aortic aneurysm. Lung RADS Cat 1 - Negative: No nodules and definitely benign nodules Lung-RADS 1.0 CATEGORIES: Category 0 - Prior chest CT exam(s) being located for comparison. Category 1 - Annual screening in 12 months. No nodules or definitely benign nodules. Category 2 - Annual screening in 12 months. Benign appearance. Nodules with low likelihood of becomin g active cancer. Category 3 - 6-month follow-up. Probably benign. Short-term follow-up suggested. Nodules with low lik elihood of becoming active cancer. Category 4A - 3-month follow-up and CT/PET if >8 mm in size. Suspicious finding. Findings which requi re additional testing. Category 4B - Findings which require additional testing and tissue sampling. Suspicious finding. Category 4X - Category 3 or 4 nodules with additional features or imaging findings that increases the suspicion of malignancy. Modifier S- Potentially clinically significant finding. (Non lung cancer) RADIATION DOSE DELIVERED: 89.15mGy.cm Total DLP 89.15mGy.cmTotal DLP DATA REPOSITORY: All CT scans at this facility are submitted to the National Radiology Data Registry (NRDR) Dose Index Registry (DIR) with the [employer] (ACR). RADIATION OPTIMIZATION: All CT scans at this facility use at least one of these dose optimization te chniques: automated exposure control; mA and/or kV adjustment per patient size (includes targeted exa ms where dose is matched to clinical indication); or iterative reconstruction.
== END 2022-12-17 01:59 ==
LOC: DI 01:40
PROVIDERS: PCP Nurse Practitioner Family; Visit Provider Nurse Practitioner Family
DX: Z87.891 Personal history of nicotine dependence (principal); N63.32 Unspecified lump in axillary tail of the left breast; Z12.2 Encounter for screening for malignant neoplasm of respiratory organs; I88.9 Nonspecific lymphadenitis, unspecified
CPT/HCPCS: 71271; 76642; 71046; 76775

== ENCOUNTER 2022-12-29 11:12 | Outpatient (CLI) | payer MEDICARE, MEDICAID, SELFPAY ==
--- NOTE | 2022-12-29 08:15 | DI.RAD_ITS ---
Exam(s) XR ELBOW RT LIMITED EXAM: XR ELBOW RT LIMITED CLINICAL HISTORY: RT ELBOW PAIN, M25.521, S/P FALL AND BLUNT TRAUMA 1 DAY AGO. TECHNIQUE: 2D digital imaging was performed of the left elbow. Three images were obtained. AP, lat eral and oblique views were obtained. COMPARISON: No exams were available for comparison FINDINGS: Radial head views are suboptimal. BONES: No acute fracture is present. No bony destructive lesion is seen. JOINTS: The elbow is normally aligned. No joint effusion is seen. There is spurring of the coronoid p rocess. SOFT TISSUE: Normal. IMPRESSION: No definite acute fracture or dislocation. DATA REPOSITORY: RADIATION DOSE DELIVERED:
--- NOTE | 2022-12-29 08:15 | DI.RAD_ITS ---
Exam(s) XR SHOULDER RT COMPLETE 2+V EXAM: XR SHOULDER RT COMPLETE 2+V CLINICAL HISTORY: RT SHOULDER PAIN, M25.511, S/P FALL AND BLUNT TRAUMA 1 DAY AGO. TECHNIQUE: 2D digital imaging was performed of the right shoulder. Five images were obtained. AP, Grashey, Y-view and axillary views were obtained. COMPARISON: CR XR SHOULDER RT COMPLETE 2+V from 01/15/2022 FINDINGS: BONES: No acute fracture is present. No bony destructive lesion is seen. JOINTS: No dislocation present. There are marked degenerative changes of the glenohumeral joint with joint space narrowing and bony hypertrophy. The acromioclavicular joint is well maintained. SOFT TISSUE: Normal. IMPRESSION: Osteoarthritis of the right shoulder. DATA REPOSITORY: RADIATION DOSE DELIVERED:
--- NOTE | 2022-12-29 08:15 | DI.RAD_ITS ---
Exam(s) XR SHOULDER LT COMPLETE 2+V EXAM: XR SHOULDER LT COMPLETE 2+V CLINICAL HISTORY: CHRONIC LT SHOULDER PAIN, M25.512. TECHNIQUE: 2D digital imaging was performed of the left shoulder. Five images were obtained. AP, G rashey, Y-view and axillary views were obtained. COMPARISON: No exams were available for comparison FINDINGS: BONES: No acute fracture is present. No bony destructive lesion is seen. JOINTS: No dislocation present. There are marked degenerative changes of the glenohumeral joint with bony hypertrophic changes and joint space narrowing. The acromioclavicular joint is well maintained. SOFT TISSUE: Normal. IMPRESSION: Marked degenerative changes of the glenohumeral joint. DATA REPOSITORY: RADIATION DOSE DELIVERED:
== END 2022-12-29 11:32 ==
LOC: DI 11:13
PROVIDERS: PCP Nurse Practitioner Family; Visit Provider Nurse Practitioner Family
DX: M19.011 Primary osteoarthritis, right shoulder (principal); M19.012 Primary osteoarthritis, left shoulder
CPT/HCPCS: 73030; 73070

== ENCOUNTER 2023-03-03 09:02 | Emergency (ER) | payer MEDICARE, MEDICAID, SELFPAY ==
[2023-03-03 09:21] VITALS: BP 147/92; PULSE 102; RESP 18; TEMP 36.5; O2SAT 98
--- NOTE | 2023-03-03 10:30 | DI.RAD_ITS ---
Exam(s) XR CHEST 2V PA LATERAL EXAM: XR CHEST 2V PA LATERAL CLINICAL HISTORY: Cough, Sore throat TECHNIQUE: 2D digital imaging was performed. COMPARISON: CT CT CHEST LUNG CANCER SCREEN from 12/17/2022 FINDINGS: HEART: Normal size. Aorta: Not dilated. PULMONARY VASCULATURE: Normal. LUNGS: Clear. PLEURAL SPACE: No pleural effusion or pneumothorax. BONE:Unremarkable for age. IMPRESSION: No acute abnormality. DATA REPOSITORY: RADIATION DOSE DELIVERED:
--- NOTE | 2023-03-03 10:35 | ED.GENADUL_ITS ---
Discharge Plan Disposition Patient Disposition: Home Condition: Stable Discharge Details Clinical Impression: Pharyngitis, Bronchitis Primary Care Provider: JULIO JACINTO ED Provider: Xena Falcon Home Meds and New Rx's Prescriptions: New azithromycin 250 mg tablet See Rx Instructions .ROUTE .COMPLEX 6 Days Qty: 6 0RF Rx Instructions: For 250 mg dose pack: take 500 mg today (day 1), then 250 mg for 4 days (days 2-5) Continued nicotine [Nicoderm CQ] 1 EACH patch 24 hour 1 ea Transdermal DAILY naloxegol 25 mg tablet 25 mg PO QAM Rx Instructions: must be taken on empty stomach; no food 1 hr after or 2-3 hrs before dose duloxetine 30 mg capsule,delayed release(DR/EC) 30 mg PO DAILY apple cider vinegar 600 mg capsule 1,200 mg PO DAILY epinephrine 0.3 mg/0.3 mL auto-injector 0.3 mg IM ONCE Rx Instructions: as a single dose; may repeat once apple cider vinegar 600 mg capsule 1,200 mg PO DAILY methadone 10 MG/ML concentrate 70 mg PO DAILY epinephrine [EpiPen] 0.3 MG/0.3 ML auto-injector 0.3 mg IJ DAILY PRN PRNQty: 1 0RF losartan 25 MG tablet 100 mg PO QAM hydrochlorothiazide 25 mg tablet 40 mg PO DAILY Rx Instructions: takes 1.5 pills albuterol sulfate 90 mcg/actuation HFA aerosol inhaler 2 inh INHALATION Q4-5H PRN Patient Comments: INHALE 2 PUFFS BY MOUTH EVERY 4 HOURS NEEDED No Action triamcinolone acetonide 0.1 % cream 1 applic topical BID Movantik 25 mg tablet 25 mg PO QAM Rx Instructions: must be taken on empty stomach; no food 1 hr after or 2-3 hrs before dose docusate sodium [Colace] 100 mg Capsule 1 mg PO DAILY Discharge Instructions Instructions: Pharyngitis (ED), Acute Bronchitis (ED) Additional Instructions: No evidence of pneumonia on your x-ray. Strep swab, rapid flu and COVID are negative as well. Please gargle with warm salt water up to 3 times daily as needed. Take the antibiotic as directed. Continue with your albuterol inhaler. Follow up with primary care provider in 3-5 days. Return to ED sooner if any worsening or concerns. Increase oral fluids. Please take Tylenol with food every 4-6 hours as needed for pain and swelling. Referrals: JULIO JACINTO, TREASURY CONSULTANT [Primary Care Provider] - 3 days Discharge Data Discharge Date/Time-TO BE ENTERED AT DEPARTURE: 03/03/23 12:16 Medical Decision Making 57-year-old female past medical history of adenoid hypertrophy, chronic cough, and acquired pneumonia, hyperlipidemia hypertension, hepatitis C, chronic kidney disease, aneurysm of descending aorta, smoker presents with chief complaint of sore throat, bronchial type cough since 2 PM yesterday. She endorses that she has been working on the yard around [facility] recently. She reports she was unable to sleep last night due to the coughing. She does have 2+ tonsils bilaterally, uvula is midline, posterior oropharynx erythema no exudate noted. She does have some tender cervical anterior lymphadenopathy. She does have some expiratory wheezes scattered in the bases. She has been taking her albuterol inhaler this morning as previously prescribed. Rapid strep is negative upon arrival. She last took 325 mg of Tylenol at 2 this morning and guaifenesin. Rapid strep negative, sent for culture, rapid COVID and flu swab ordered, chest x-ray and dexamethasone 10 mg p.o. Will consider azithromycin for bronchitis, differential diagnosis includes pneumonia, viral pharyngitis. Rapid strep, rapid flu COVID swabs are negative. Patient given azithromycin Z- Michael, instructed to follow-up with PCP. Patient already has albuterol inhaler. This text was generated using [employer] dictation system, please disregard any oddities of phrase or misspellings. Medical Records Medical records reviewed: Yes I reviewed the patient's medical records. Imaging Data Radiologic Study: Imaging: X-Ray Radiologist's impression: XR CHEST 2V PA ? LATERAL EXAM:? XR CHEST 2V PA ? LATERAL CLINICAL HISTORY:? Cough, Sore throat TECHNIQUE:? 2D digital imaging was performed. COMPARISON:? CT CT CHEST LUNG CANCER SCREEN from 12/17/2022 FINDINGS: HEART: Normal size.? Aorta: Not dilated. PULMONARY VASCULATURE: Normal. LUNGS: Clear. ? PLEURAL SPACE: No pleural effusion or pneumothorax. BONE:Unremarkable for age.? IMPRESSION: No acute abnormality.? Lab Data Lab results reviewed: Yes I reviewed the patient's lab results. Labs: 03/03/23 10:10 Pharynx Group A Streptococcus Culture - Pending HPI General Mode of arrival: ambulatory . Date/Time Provider Initiated Documentation: 03/03/23 09:34 . Limitations to Documentation: no limitations . Information obtained by: patient, RN notes reviewed and old records reviewed . HPI Narrative: 57-year-old female past medical history of adenoid hypertrophy, chronic cough, and acquired pneumonia, hyperlipidemia hypertension, hepatitis C, chronic kidney disease, aneurysm of descending aorta, smoker presents with chief complaint of sore throat, bronchial type cough since 2 PM yesterday. She endorses that she has been working on the yard around [facility] recently. She reports she was unable to sleep last night due to the coughing. She does have 2+ tonsils bilaterally, uvula is midline, posterior oropharynx erythema no exudate noted. She does have some tender cervical anterior lymphadenopathy. She does have some expiratory wheezes scattered in the bases. She has been taking her albuterol inhaler this morning as previously prescribed. Rapid strep is negative upon arr ival. She last took 325 mg of Tylenol at 2 this morning and guaifenesin. Related Data Home Medications Medication Instructions Recorded Confirmed methadone 10 mg/mL oral concentrate 70 mg PO DAILY 11/28/15 03/04/22 nicotine 14 mg/24 hr daily 1 ea transdermal DAILY 11/17/16 03/04/22 transdermal patch (Nicoderm CQ) epinephrine 0.3 mg/0.3 mL 0.3 mg (0.3 mL) IJ DAILY PRN PRN 08/28/17 03/04/22 injection, auto-injector (EpiPen) ##1 losartan 25 mg tablet 100 mg PO QAM 09/06/18 03/04/22 docusate sodium 100 mg capsule 1 mg PO DAILY 02/08/19 03/04/22 (Colace) albuterol sulfate 90 mcg/actuation 2 inh inhalation Q4-5H PRN 03/09/21 03/04/22 aerosol inhaler triamcinolone acetonide 0.1 % 1 applic topical BID 10/27/21 03/04/22 topical cream apple cider vinegar 600 mg capsule 1,200 mg PO DAILY 01/28/22 03/04/22 duloxetine 30 mg capsule,delayed 30 mg PO DAILY 01/28/22 03/04/22 release naloxegol 25 mg tablet 25 mg PO QAM 01/28/22 03/04/22 hydrochlorothiazide 25 mg tablet 40 mg PO DAILY 03/04/22 03/04/22 apple cider vinegar 600 mg capsule 1,200 mg PO DAILY 05/14/22 epinephrine 0.3 mg/0.3 mL 0.3 mg IM ONCE 05/14/22 injection, auto-injector naloxegol 25 mg tablet (Movantik) 25 mg PO QAM 05/14/22 azithromycin 250 mg tablet See Rx Instructions PO .COMPLEX 03/03/23 Bronchitis 6 days #6 tabs Previous Rx's Medication Instructions Recorded epinephrine 0.3 mg/0.3 mL 0.3 mg (0.3 mL) IJ DAILY PRN PRN 08/28/17 injection, auto-injector (EpiPen) ##1 azithromycin 250 mg tablet See Rx Instructions PO .COMPLEX 03/03/23 Bronchitis 6 days #6 tabs Allergies Allergy/AdvReac Type Severity Reaction Status Date / Time Penicillins Allergy Intermediate Hives, Verified 03/04/22 08:49 nausea bees Allergy Uncoded 03/04/22 08:49 egg yolks Allergy Uncoded 03/04/22 08:49 General Stated Complaint: Sorethroat CELESTE: 4 Review of Systems All systems reviewed & are unremarkable except as noted in HPI and below Constitutional Constitutional: Denies chills and Denies fever(s) ENT Ears, Nose, Mouth, and Throat: Reports as per HPI, Reports nasal congestion, Reports sinus pain, Reports sore throat and Reports throat swelling Cardiovascular Cardiovascular: Reports as per HPI Respiratory Respiratory: Reports chest congestion, Reports cough and Denies hemoptysis Allergic/Immunologic Allergic/Immunologic: Reports throat swelling PFSH All Active Problems (Updated 03/03/23 @ 11:56 by Xena Falcon NP) Pharyngitis (Acute) Bronchitis (Acute) Chest pain of unknown etiology (Acute) Aneurysm of descending aorta (Acute) Chronic kidney disease (Chronic) Screening for colon cancer (Acute) Arthritis of wrist, left (Acute) Mixed stress and urge urinary incontinence (Acute) Microscopic hematuria (Acute) Axillary mass (Acute) Chest pain (Acute) Medical History Adenoid hypertrophy Agoraphobia with panic attacks Amenorrhea Arthritis of carpometacarpal (CMC) joint of right thumb Arthritis of right wrist Axillary abscess Chronic cough Community acquired pneumonia Constipation Contraceptive surveillance, unspecified (10/31/13) Depression Dermatitis Disorder of vocal cord Hand numbness Hematuria Hepatitis C Hernia HLD (hyperlipidemia) Hypertension Lymphadenitis Maxillary sinus cyst Menopause Menstrual irregularity (06/30/12) Metabolic brain syndrome Multiple joint pain Pain in left shoulder Pain in right shoulder Peripheral edema Pharyngitis Rheumatoid arthritis Right wrist effusion Scapholunate dissociation of right wrist Smoker Tonsillar hypertrophy Unspecified essential hypertension (06/30/12) URI (upper respiratory infection) Surgical History Cholecystectomy Fracture of scaphoid of right wrist with nonunion S/P tomorrow carpectomy: 03/15/2020 History of bunionectomy History of knee surgery Social History Smoking/Tobacco Use Status: Current every day Tobacco Type: cigarettes Smoking risk assessment performed?: Yes Alcohol Intake: current Alcohol Intake frequency: holidays/special occasions only Alcohol type: wine Drug use: Current Sobriety Substance use type: former substance user Current gender identity: female Do you feel safe at home: Yes Do you feel safe in your relationship?: Yes Exam Narrative Exam Narrative: Constitutional: Alert and oriented x3. Appears stated age. Obese body habitus. Head: Normocephalic, no trauma. Eyes: Pupils PERRL, Right lazy eye, eyelids symmetrical without lesions, discharge, or swelling. ENT: Bilateral TM's show no erythema, no bulging, no loss of landmarks External ear normal to inspection, no mastoid TTP, swelling, or erythema, Nasal turbinates boggy,, no nasal discharge. Normal dentition, Posterior pharynx eryhtemic, Tonsils 2+ bilaterally no exudate noted, uvula midline. Chest: RRR, Normal S1, S2, distal pulses intact. Resp: Lungs clear to auscultation bilaterally, no wheezes, rales, or rhonchi. Abdomen: Soft, non-distended, Normoactive bowel sounds all 4 quads. Musculoskeletal: Normal gait, 5/5 strength to all four extremities. She is wearing a splint on her left wrist. Skin: No suspicious rashes or lesions. Capillary refill less than 2 sec. Neurologic: Cranial nerves II-XII intact. Alert and oriented x 3. Motor: No deficits noted. Sensory: Intact bilaterally all 4 extremities. Hematologic/Lymphatic: No ecchymosis, positive anterior cervical lymphadenopathy. Course Vital Signs Vital signs: Vital Signs Temperature 36.5 C 03/03/23 09:21 Pulse 102 H 03/03/23 09:21 Respiratory Rate 18 03/03/23 09:21 Blood Pressure 147/92 H 03/03/23 09:21 Pulse Oximetry 98 03/03/23 09:21 Temperature 36.5 C 03/03/23 09:21 Temperature Source Skin 03/03/23 09:21 Pulse 102 H 03/03/23 09:21 Respiratory Rate 18 03/03/23 09:21 Respiratory Effort Normal 03/03/23 10:10 Blood Pressure 147/92 H 03/03/23 09:21 Blood Pressure Position Sitting 03/03/23 09:21 Pulse Oximetry 98 03/03/23 09:21 Oxygen Delivery Method Room Air 03/03/23 09:21 Oxygen Flow Rate 0 03/03/23 09:21 Pain Level 8 03/03/23 09:21 Lab/Test Results Lab/Test Results: 03/03/23 10:10 Pharynx Group A Streptococcus Culture - Pending POC Strep Test-YING(Rapid) Start: 03/03/23 09:35 Freq: .Rapid Strep Test Status: Active Protocol: Document 03/03/23 10:19 AP (Rec: 03/03/23 10:19 AP [id number]) Strep test-YING(Rapid)-POC POC-Strep test-YING (Rapid) Negative POC-Strep test-YING (Rapid) Negative
[2023-03-03] MEDS: Dexamethasone 10 MG/ML VIAL PO (10:44)
[2023-03-03 12:10] VITALS: BP 123/77; PULSE 88; RESP 16; O2SAT 94
== END 2023-03-03 12:16 | disposition home or self-care (01) ==
PROVIDERS: Emergency Provider Registered Nurse Emergency; PCP Nurse Practitioner Family
DX: J40 Bronchitis, not specified as acute or chronic (principal); J02.9 Acute pharyngitis, unspecified
CPT/HCPCS: 87426; 87880; 99283; 71046; 87081; 99284; J1100

== ENCOUNTER 2023-05-19 09:07 | Outpatient (CLI) | payer MEDICARE, MEDICAID, SELFPAY ==
[2023-05-19 09:03] LABS: Abs Immature Grans 0.01 10^3/uL (0.0-0.06); Absolute Basophil Count 0.04 10^3/uL (0.0-0.2); Absolute Eosinophil Count 0.12 10^3/uL (0.0-0.7); Absolute Lymphocyte Count 2.99 10^3/uL (1.2-3.4); Absolute Monocyte Count 0.46 10^3/uL (0.1-0.8); Absolute Neutrophil Count 3.48 10^3/uL (1.2-6.7); Basophils % 0.6; Eosinophils % 1.7; HCT 41.7 % (36.0-46.0); HGB 14.2 g/dL (11.2-15.7); Immature Grans % 0.1; Lymphocytes % 42.1; MCH 30.5 pg (27.0-33.0); MCHC 34.1 % (32.0-36.0); MCV 90 fL (80-95); MPV 8.4 fL (8.0-11.0); Monocytes % 6.5; Platelet Count 298 10^3/uL (130-400); RBC 4.65 10^6/uL (3.93-5.22); RDW 13.2 % (11.7-14.6); RDW-SD 43.5 fL
[2023-05-19 09:14] LABS: ESR 33 mm/hr (0-30)
[2023-05-19 09:58] LABS: ALT 24 U/L (14-59); AST 21 U/L (15-37); Alkaline Phosphatase 61 U/L (46-116); Anion Gap 6.7 mmol/L (3-11); BUN 15 mg/dL (7-18); Bilirubin, Total 0.5 mg/dL (0.2-1.0); C-Reactive Protein 0.48 mg/dL (0.0-0.3); CO2 30.3 mmol/L (21.0-32.0); CREATININE 1.1 mg/dL (0.55-1.02); Calcium 9.6 mg/dL (8.5-10.1); Chloride 100 mmol/L (98-107); Estimated GFR 58.24 (mL/min/1.73m2); Glucose 123 mg/dL (74-106); Potassium 3.4 mmol/L (3.5-5.1); Sodium 137 mmol/L (136-145); Total Protein 8.1 g/dL (6.4-8.2)
== END 2023-05-19 09:08 | disposition home or self-care (01) ==
LOC: LBO 09:25
PROVIDERS: PCP Nurse Practitioner Family; Visit Provider Nurse Practitioner Family
DX: Z00.00 Encounter for general adult medical examination without abnormal findings (principal)
CPT/HCPCS: 36415; 80053; 85652; 85025; 86140

== ENCOUNTER → 2023-07-28 01:42 | Outpatient (CLI) | payer MEDICARE, MEDICAID, SELFPAY ==
[2023-07-28 08:34] LABS: CREATININE 1.1 mg/dL (0.55-1.02); Estimated GFR 58.24 (mL/min/1.73m2)
[2023-07-28] MEDS: Omnipaque 350 MG/ML 500 ML BTL-Imaging package 70 ML IJ (08:50)
[2023-07-28] MEDS: Normal Saline - Diluent 50 ML VIAL IJ (08:59)
--- NOTE | 2023-07-28 09:00 | DI.CT_ITS ---
Exam(s) CT CHEST W EXAM: CT CHEST W CLINICAL HISTORY: LYMPHADENITIS I88.9 CHEST WALL PAIN TECHNIQUE: Imaging Protocol: Axial computed tomography images with coronal and sagittal reformatted images were created and reviewed CONTRAST MATERIAL: Intravenous: Omnipaque 350 Contrast volume:70 ml. COMPARISON: CT CT CHEST LUNG CANCER SCREEN from 12/17/2022 FINDINGS: Pulmonary parenchyma: No consolidation. No dominant measurable mass. Minimal emphysematous changes. Tracheobronchial tree: No bronchiectasis or mucous plugging. Mediastinum and Zofia: No dominant adenopathy or fluid collection. Pleura: No effusion. No pneumothorax. Heart: The heart is not dilated. No coronary artery calcifications are seen. Aorta: Thoracic aorta non-dilated. Mild atherosclerotic changes. Upper abdomen: No acute findings.. Status post cholecystectomy. Bones: Degenerative changes in the spine. Soft tissues: Unremarkable. Normal appearing axillary lymph nodes. No abnormally enlarged lymph nod es. No change in appearance from prior exam. IMPRESSION: No acute abnormality. No evidence of abnormally enlarged axillary lymph nodes. No abnormality of th e chest wall identified. RADIATION DOSE DELIVERED: Total DLP DATA REPOSITORY: All CT scans at this facility are submitted to the National Radiology Data Registry (NRDR) Dose Index Registry (DIR) with the [employer] (ACR). RADIATION OPTIMIZATION: All CT scans at this facility use at least one of these dose optimization te chniques: automated exposure control; mA and/or kV adjustment per patient size (includes targeted exa ms where dose is matched to clinical indication); or iterative reconstruction.
== END ==
PROVIDERS: PCP Nurse Practitioner Family; Visit Provider Nurse Practitioner Family
DX: I88.9 Nonspecific lymphadenitis, unspecified (principal); Z00.00 Encounter for general adult medical examination without abnormal findings
CPT/HCPCS: 71260; 82565

== ENCOUNTER → 2023-09-17 00:17 | Outpatient (CLI) | payer MEDICARE, MEDICAID, SELFPAY ==
--- NOTE | 2023-09-17 | DI.RAD_ITS ---
Exam(s) XR ANKLE RT COMPLETE EXAM: XR ANKLE RT COMPLETE CLINICAL HISTORY: PAIN RT ANKLE AND JOINTS M25.571. TECHNIQUE: 2D digital imaging was performed of the right ankle. Three images were obtained. AP, la teral and oblique views were obtained. COMPARISON: No exams were available for comparison FINDINGS: BONES: No acute fracture is present. No bony destructive lesion is seen. There is an enthesophyte at the posterior calcaneus. There is and orthopedic wire seen in the 1st metatarsal bone. JOINTS: The ankle mortise is normally aligned. The ankle joint is well maintained. SOFT TISSUE: There is soft tissue swelling laterally inferior to the fibula. No radiopaque foreign b odies or soft tissue calcifications are seen. IMPRESSION: Soft tissue swelling laterally inferior to the fibula. No radiopaque foreign body or soft tissue leanne cifications are seen. Please correlate clinically. DATA REPOSITORY: RADIATION DOSE DELIVERED:
--- NOTE | 2023-09-17 | DI.RAD_ITS ---
Exam(s) XR ANKLE LT COMPLETE EXAM: XR ANKLE LT COMPLETE CLINICAL HISTORY: PAIN LEFT ANKLE AND JOINTS M25.572 TECHNIQUE: 2D digital imaging was performed of the left ankle. Three images were obtained. AP, lat eral and oblique views were obtained. COMPARISON: No exams were available for comparison FINDINGS: BONES: No acute fracture is present. No bony destructive lesion is seen. There is an enthesophyte at the posterior calcaneus. There is a tiny plantar calcaneal spur. JOINTS:The ankle mortise is normally aligned. The ankle joint is well maintained. SOFT TISSUE: There is mild soft tissue swelling laterally. IMPRESSION: Mild soft tissue swelling around the ankle laterally. DATA REPOSITORY: RADIATION DOSE DELIVERED:
== END ==
PROVIDERS: PCP Nurse Practitioner Family; Visit Provider Nurse Practitioner Family
DX: M25.572 Pain in left ankle and joints of left foot (principal); M25.571 Pain in right ankle and joints of right foot
CPT/HCPCS: 73610

== ENCOUNTER → 2023-11-11 09:54 | Outpatient (BNVA) | payer MEDICARE, MEDICAID, SELFPAY | PROVIDERS: PCP Nurse Practitioner Family; Referring Provider Nurse Practitioner Family; Visit Provider Surgery | DX: M79.622 Pain in left upper arm (principal) | CPT/HCPCS: 99214 ==

== ENCOUNTER 2023-11-29 11:04 | Outpatient (REF) | payer MEDICARE, MEDICAID, SELFPAY ==
[2023-11-29 15:47] LABS: Abs Immature Grans 0.03 10^3/uL (0.0-0.06); Absolute Basophil Count 0.06 10^3/uL (0.0-0.2); Absolute Lymphocyte Count 2.85 10^3/uL (1.2-3.4); Absolute Monocyte Count 0.58 10^3/uL (0.1-0.8); Absolute Neutrophil Count 4.96 10^3/uL (1.2-6.7); Basophils % 0.7 %; ESR 39 mm/hr (0-30); Eosinophils % 1.2 %; HCT 43.6 % (36.0-46.0); HGB 14.1 g/dL (11.2-15.7); Immature Grans % 0.3 %; Lymphocytes % 33.2 %; MCHC 32.3 % (32.0-36.0); MCV 93 fL (80-95); Monocytes % 6.8 %; Neutrophils % 57.8 %; Platelet Count 340 10^3/uL (130-400); RDW 13.4 % (11.7-14.6); RDW-SD 46.4 fL; WBC 8.58 10^3/uL (4.4-10.8)
[2023-11-29 16:35] LABS: ALT 23 U/L (14-59); AST 21 U/L (15-37); Albumin 4.6 g/dL (3.4-5.0); Alkaline Phosphatase 67 U/L (46-116); Anion Gap 13.2 mmol/L (3-11); BUN 22 mg/dL (7-18); Bilirubin, Total 0.5 mg/dL (0.2-1.0); C-Reactive Protein 0.91 mg/dL (<or=0.5); CO2 27.8 mmol/L (21.0-32.0); CREATININE 1.1 mg/dL (0.55-1.02); Calcium 9.9 mg/dL (8.5-10.1); Calculated LDL 141 mg/dL (<100); Chloride 101 mmol/L (98-107); Cholesterol 235 mg/dL (<200); Estimated GFR 58.24 (mL/min/1.73m2); Glucose 94 mg/dL (74-106); HDL Cholesterol 47 mg/dL (40-60); Potassium 4.3 mmol/L (3.5-5.1); Sodium 142 mmol/L (136-145); Total Protein 8.2 g/dL (6.4-8.2); Triglyceride 235 mg/dL (<150)
[2023-11-29 22:45] LABS: Rheumatoid Factor <8.6 IU/mL (<12.0)
[2023-11-30 10:16] LABS: Cyclic Citrullinated Peptide 2.7 U/mL (<5.0)
[2023-11-30 12:09] LABS: RNP Ab, IgG <6.0 CU (<20.0); Ro60 Ab, IgG <7.0 CU (<20.0); SS-A/Ro, IgG <2.3 CU (<20.0); SS-B (La) Ab, IgG <3.3 CU (<20.0); Sm (Smith) Ab, IgG <8.0 CU (<20.0)
[2023-11-30 14:02] LABS: ANA Interpretation Positive (Negative); ANA Titer Pattern 1:80 Speckled
[2023-12-01 15:20] LABS: HCV RNA Qualitative Undetected (Undetected)
== END 2023-11-29 11:05 | disposition home or self-care (01) ==
LOC: NCHCN 11:04
PROVIDERS: PCP Nurse Practitioner Family; Visit Provider Nurse Practitioner Family
DX: B19.20 Unspecified viral hepatitis C without hepatic coma (principal); M25.50 Pain in unspecified joint
CPT/HCPCS: 80053; 80061; 85652; 86200; 87522; 84443; 85025; 86038; 86140; 86235; 86431

== ENCOUNTER → 2023-12-16 01:32 | Outpatient (CLI) | payer MEDICARE, MEDICAID, SELFPAY ==
--- NOTE | 2023-12-16 07:50 | DI.MAMMO_ITS ---
Exam(s) MAMMO SCREENING EXAM: MAMMO SCREENING CLINICAL HISTORY: Z12.31 Screening. TECHNIQUE: Bilateral full field digital CC and MLO mammographic images were obtained with 3D tomosyn thesis and utilizing computer aided detection (CAD). COMPARISON: Prior mammograms were reviewed. FINDINGS: There has been no significant change in the appearance and distribution of the fibroglandular tissue. There are no new spiculated masses nor malignant appearing microcalcification groups. There is no significant architectural distortion nor skin thickening-retraction. IMPRESSION: No radiographic evidence of malignancy. BI-RADS Category 1 - Negative Breast Density - Category A - Almost entirely fatty Breast density Category C or D implies that the patient has dense breast tissue. Dense breast tissue can make it harder to find cancer on a mammogram. Dense breast tissue is also associated with an incr eased risk of breast cancer. This information about the result of the mammogram report was provided to the patient to raise their awareness. Use this report when you speak with the patient about their risks for breast cancer, which includes their family history. At that time, you may recommend additional screening tests (Ultrasoun d or MRI) as these tests may add significant information. A negative radiographic report should not delay biopsy if a dominant or clinically suspicious mass is present. Up to ten percent of cancers are not identified on mammography. A negative report may reinforce clinical impression. Adenosis and dense breasts may obscure an underlying neoplasm. False positive reports average 6 to 10%. Patient will receive a letter notifying them of these results.
== END ==
PROVIDERS: PCP Nurse Practitioner Family; Visit Provider Nurse Practitioner Family
DX: Z12.31 Encounter for screening mammogram for malignant neoplasm of breast (principal)
CPT/HCPCS: 77063; 77067

== ENCOUNTER 2024-02-12 09:02 | Emergency (ER) | payer MEDICARE, MEDICAID, SELFPAY ==
[2024-02-12 09:05] VITALS: BP 162/87; PULSE 108; RESP 20; TEMP 36.6; O2SAT 100
--- NOTE | 2024-02-12 09:15 | DI.RAD_ITS ---
Exam(s) XR HAND LT COMPLETE EXAM: XR HAND LT COMPLETE CLINICAL HISTORY: palmar pain, contracture on exam; hx wrist surg. TECHNIQUE: 2D digital imaging was performed. COMPARISON: CR XR HAND LT COMPLETE from 09/28/2022 FINDINGS: 3 views There has been interval surgical removal of the proximal carpal row bones including the scaphoid, gigi ate, and triquetrum. Pisiform remains as do the distal carpal row bones. There is no evidence of acute fracture in the hand. No dislocation. MCP joints appear unremarkable. Mild degenerative changes in DIP joints noted. No radiopaque foreign body. No osseous lesions nor erosions. No significant ulnar variance. IMPRESSION: Postop changes in the wrist as described above. Degenerative changes in the DIP joints. No acute os seous findings. DATA REPOSITORY: RADIATION DOSE DELIVERED:
--- NOTE | 2024-02-12 09:25 | W.ED.GENAD ---
Discharge Plan Disposition Patient Disposition: Home Condition: Stable Discharge Details Chief Complaint: Orthopedic Clinical Impression: Hand pain Primary Care Provider: JULIO JACINTO ED Provider: Anam Sainz Home Meds and New Rx's Prescriptions: No Action polyethylene glycol 3350 17 gram/dose powder 17 g PO DAILY PRN rosuvastatin [Crestor] 5 mg tablet 5 mg PO DAILY budesonide-formoterol [Symbicort] 160-4.5 mcg/actuation HFA aerosol inhaler 2 puff inhalation BID nicotine [Nicoderm CQ] 1 EACH patch 24 hour 1 ea Transdermal DAILY epinephrine 0.3 mg/0.3 mL auto-injector 0.3 mg IM ONCE Rx Instructions: as a single dose; may repeat once apple cider vinegar 600 mg capsule 1,200 mg PO DAILY celecoxib 200 mg capsule 200 mg PO DAILY hydrochlorothiazide 50 mg tablet 50 mg PO DAILY PRN methadone 10 mg/mL concentrate 4 mg PO DAILY losartan 25 MG tablet 100 mg PO QAM albuterol sulfate 90 mcg/actuation HFA aerosol inhaler 2 inh INHALATION Q4-5H PRN Patient Comments: INHALE 2 PUFFS BY MOUTH EVERY 4 HOURS NEEDED Discharge Instructions Instructions: Hand Pain (DC) Additional Instructions: Please follow-up with your primary orthopedic provider as well as primary care physician. HPI General Date/Time Provider Initiated Documentation: 02/12/24 09:04. HPI Narrative: 58-year-old female history of left wrist surgery in March at [facility], has been in soft wrist splint for the last 10 months, presents with painful bumps to palm of left hand with shooting pain from palmar region up into forearm of left upper extremity, denies recent trauma Related Data Home Medications ?Medication ?Instructions ?Recorded ?Confirmed nicotine 14 mg/24 hr daily 1 ea transdermal DAILY 11/17/16 02/12/24 transdermal patch (Nicoderm CQ) losartan 25 mg tablet 100 mg PO QAM 09/06/18 02/12/24 albuterol sulfate 90 mcg/actuation 2 inh inhalation Q4-5H PRN 03/09/21 02/12/24 aerosol inhaler apple cider vinegar 600 mg capsule 1,200 mg PO DAILY 05/14/22 02/12/24 epinephrine 0.3 mg/0.3 mL 0.3 mg IM ONCE 05/14/22 02/12/24 injection, auto-injector budesonide-formoterol HFA 160 2 puff inhalation BID 07/08/23 02/12/24 mcg-4.5 mcg/actuation aerosol inhaler (Symbicort) polyethylene glycol 3350 17 17 g PO DAILY PRN 07/08/23 02/12/24 gram/dose oral powder rosuvastatin 5 mg tablet (Crestor) 5 mg PO DAILY 07/08/23 02/12/24 celecoxib 200 mg capsule 200 mg PO DAILY 09/29/23 02/12/24 hydrochlorothiazide 50 mg tablet 50 mg PO DAILY PRN 09/29/23 02/12/24 methadone 10 mg/mL oral concentrate 4 mg PO DAILY 11/11/23 02/12/24 Allergies Allergy/AdvReac Type Severity Reaction Status Date / Time Penicillins Allergy Intermediate Hives, Verified 02/12/24 09:11 nausea adhesive tape Allergy rash Verified 02/12/24 09:11 atorvastatin Allergy rash Verified 02/12/24 09:11 bees Allergy Severe Anaphylaxis Uncoded 02/12/24 09:11 egg yolks Allergy mouth Uncoded 02/12/24 09:11 itching General Stated Complaint: Orthopedic CELESTE: 4 Exam Narrative Exam Narrative: Left hand: Warm well-perfused good capillary refill, flexion extension intact median radial ulnar nerve sensory distribution intact, patient has palpable soft tissue band across palm consistent with soft tissue contracture, no fluctuance no purulence no induration no erythema no lymphangitic streaking, no signs of trauma, range of motion at wrist elbow and shoulder intact Course Vital Signs Vital signs: Vital Signs Temperature 36.6 C 02/12/24 09:05 Pulse 108 H 02/12/24 09:05 Respiratory Rate 02/12/24 09:05 Blood Pressure 162/87 H 02/12/24 09:05 Pulse Oximetry 100 02/12/24 09:05 Temperature 36.6 C 02/12/24 09:05 Temperature Source Skin 02/12/24 09:05 Pulse 108 H 02/12/24 09:05 Respiratory Rate 20 02/12/24 09:05 Blood Pressure 162/87 H 02/12/24 09:05 Blood Pressure Position Sitting 02/12/24 09:05 Pulse Oximetry 100 02/12/24 09:05 Oxygen Delivery Method Room Air 02/12/24 09:05 Oxygen Flow Rate 0 02/12/24 09:05 Pain Level 8 02/12/24 09:05 Comment taking tylenol arthritis 02/12/24 09:05 Medical Decision Making 58-year-old female history of left wrist surgery at [facility] in March, has been in the left soft wrist splint since then, presents with painful bumps to palm of left hand noticed over the last couple of weeks, describes neuropathic type pain rating from palm to forearm, afebrile nontoxic no acute distress, examination left hand: Warm well-perfused good capillary refill, flexion extension intact median radial ulnar nerve sensory distribution intact, patient has palpable soft tissue band across palm consistent with soft tissue contracture, no fluctuance no purulence no induration no erythema no lymphangitic streaking, no signs of trauma, range of motion at wrist elbow and shoulder intact; likely soft tissue contracture contributing to symptomatology most also consider component of neuropathic pain versus nerve impingement, neurovascular exam of limb intact, no external signs of trauma, will obtain screening x-ray of hand, have offered patient referral to [facility] and [facility] hand specialist however patient like to follow-up with [place] orthopedic team although she has attempted to contact them multiple times without response. Trial of anti-inflammatory here in department. Home care instructions and return precautions to be given. No evidence of fracture no evidence of dislocation no evidence of vascular insult no evidence of infection 10: 50 patient was comfortably no acute distress no apparent fracture or dislocation seen on x-ray of hand; patient has expressed frustration with her outpatient care I have offered to refer her to a new primary care to address a multitude of chronic issues including left axillary discomfort which she said she has had MRI and surgery for, patient also had extensive blood work and did not receive results. I have counseled her regarding the results we have in our system most recently. I have encouraged her to follow-up closely with her orthopedic team at [place] and to follow-up with a new primary care referral that we will initiate today. Given home care instructions and return precautions. Quality:SDOH Health Related Social Needs: No Data to Display PFSH All Active Problems (Updated 02/12/24 @ 10:52 by Anam Sainz MD) Hand pain (Acute) Left axillary pain (Acute) Chest pain of unknown etiology (Acute) Aneurysm of descending aorta (Acute) Chronic kidney disease (Chronic) Screening for colon cancer (Acute) Arthritis of wrist, left (Acute) Mixed stress and urge urinary incontinence (Acute) Microscopic hematuria (Acute) Axillary mass (Acute) Chest pain (Acute) Medical History (Updated 02/12/24 @ 10:52 by Anam Sainz MD) Joint pain Pain, wrist Sleep pattern disturbance Hx of substance abuse Hand pain, left Chest wall mass Wheezing Obesity Cough Multiple nevi Tonsillar hypertrophy Axillary abscess Dermatitis Pain in left shoulder Pain in right shoulder Hypertension Menopause Multiple joint pain Hand numbness Maxillary sinus cyst Adenoid hypertrophy Disorder of vocal cord Hernia Community acquired pneumonia Chronic cough Constipation Peripheral edema Amenorrhea HLD (hyperlipidemia) Agoraphobia with panic attacks Metabolic brain syndrome Hepatitis C Smoker Lymphadenitis Hematuria Pharyngitis URI (upper respiratory infection) Right wrist effusion Depression Rheumatoid arthritis Arthritis of right wrist Scapholunate dissociation of right wrist Arthritis of carpometacarpal (CMC) joint of right thumb Contraceptive surveillance, unspecified (10/31/13) Unspecified essential hypertension (06/30/12) Menstrual irregularity (06/30/12) Surgical History Fracture of scaphoid of right wrist with nonunion S/P tomorrow carpectomy: 03/15/2020 History of bunionectomy History of knee surgery Cholecystectomy Social History Smoking/Tobacco Use Status: Current every day Tobacco Type: cigarettes Smoking risk assessment performed?: Yes Alcohol Intake: current Alcohol Intake frequency: holidays/special occasions only Alcohol type: wine Drug use: Current Sobriety Substance use type: former substance user Current gender identity: female Do you feel safe at home: Yes Do you feel safe in your relationship?: Yes
[2024-02-12] MEDS: Ketorolac 15 MG/ML VIAL IM (09:31)
[2024-02-12 10:12] VITALS: BP 167/93; PULSE 86; RESP 18; TEMP 36.8; O2SAT 96
--- NOTE | 2024-02-12 11:12 | NUR.NOTE ---
Arillary lump and hand pain needs to seen in two weeks patient wants new pcp.Nursing Note:
--- NOTE | 2024-02-12 11:33 | DI.VRAD_ITS ---
PROCEDURE INFORMATION: Exam: XR Left Hand Exam date and time: 02/12/2024 9:33 AM Age: 58 years old Clinical indication: Pain; Hand; Left; Prior surgery; Surgery date: 6+ months; Surgery type: Wrist sugery; Additional info: Palar pain, contraction on exam TECHNIQUE: Imaging protocol: Radiologic exam of the left hand. Views: 3 or more views. COMPARISON: CR XR HAND LT COMPLETE 09/28/2022 9:24 AM FINDINGS: Bones/joints: Bony structures are osteopenic. There are degenerative changes of the basal joint of the thumb and the STT joint. There has been apparent resection of the proximal carpals including the scaphoid, lunate. Mild degenerative changes are seen in the interphalangeal joints. No acute fracture identified. There is no definite acute bony abnormality. Soft tissues: Soft tissues are not significantly changed. No radiopaque foreign object identified. IMPRESSION: DJD. Postoperative changes of the wrist. No acute findings by plain film exam Dictated and Authenticated by: Kristin Hidalgo MD. Ordering:QUEENIE Mendieta MD
== END 2024-02-12 11:03 | disposition home or self-care (01) ==
PROVIDERS: Emergency Provider Emergency Medicine; PCP Nurse Practitioner Family
DX: M79.642 Pain in left hand (principal); M79.602 Pain in left arm
CPT/HCPCS: 96372; 99284; 73130; 99283; J1885

== ENCOUNTER 2024-05-23 12:45 | Outpatient (REF) | payer MEDICARE, MEDICAID, SELFPAY ==
[2024-05-23 18:11] LABS: ALT 25 U/L (14-59); AST 24 U/L (15-37); Albumin 4.1 g/dL (3.4-5.0); Alkaline Phosphatase 74 U/L (46-116); Anion Gap 11.2 mmol/L (3-11); BUN 12 mg/dL (7-18); Bilirubin, Total 0.63 mg/dL (0.2-1.0); CO2 25.8 mmol/L (21.0-32.0); Calcium 9.7 mg/dL (8.5-10.1); Chloride 104 mmol/L (98-107); Glucose 110 mg/dL (74-106); Potassium 3.5 mmol/L (3.5-5.1); Sodium 141 mmol/L (136-145); Total Protein 8.2 g/dL (6.4-8.2)
== END 2024-05-23 12:46 | disposition home or self-care (01) ==
LOC: NCHCN 12:45
PROVIDERS: PCP Nurse Practitioner Family; Visit Provider Nurse Practitioner Family
DX: G89.29 Other chronic pain (principal)
CPT/HCPCS: 80053

== ENCOUNTER 2024-09-19 15:14 | Outpatient (REF) | payer MEDICARE, MEDICAID, SELFPAY ==
[2024-09-19 16:53] LABS: ALT 23 U/L (14-59); AST 19 U/L (15-37); Albumin 4.2 g/dL (3.4-5.0); Alkaline Phosphatase 69 U/L (46-116); Anion Gap 10.3 mmol/L (3-11); BUN 21 mg/dL (7-18); Bilirubin, Total 0.57 mg/dL (0.2-1.0); CO2 28.7 mmol/L (21.0-32.0); CREATININE 1.1 mg/dL (0.55-1.02); Calcium 9.9 mg/dL (8.5-10.1); Calculated LDL 113 mg/dL (<100); Chloride 105 mmol/L (98-107); Cholesterol 215 mg/dL (<200); Estimated GFR 57.88 (mL/min/1.73m2); Glucose 130 mg/dL (74-106); HDL Cholesterol 50 mg/dL (40-60); Potassium 3.6 mmol/L (3.5-5.1); Sodium 144 mmol/L (136-145); Total Protein 7.6 g/dL (6.4-8.2); Triglyceride 263 mg/dL (<150)
[2024-09-19 18:00] LABS: Hemoglobin A1C 5.6 % (<5.7)
== END 2024-09-19 15:15 | disposition home or self-care (01) ==
LOC: NCHCN 15:14
PROVIDERS: PCP Nurse Practitioner Family; Visit Provider Nurse Practitioner Family
DX: E78.5 Hyperlipidemia, unspecified (principal); N89.9 Noninflammatory disorder of vagina, unspecified
CPT/HCPCS: 80053; 80061; 83036

== ENCOUNTER 2024-11-02 10:06 | Emergency (ER) | payer MEDICARE, MEDICAID, SELFPAY ==
[2024-11-02 10:13] VITALS: BP 149/78; PULSE 102; RESP 16; O2SAT 96
--- NOTE | 2024-11-02 10:29 | ED.GENADUL_ITS ---
Discharge Plan Disposition Patient Disposition: Home Condition: Stable Discharge Details Clinical Impression: Pain in right knee, Degenerative joint disease of knee, right Primary Care Provider: JULIO JACINTO ED Provider: Shira Gusman Home Meds and New Rx's Prescriptions: New diclofenac sodium 1 % gel 2 g topical QID Qty: 100 0RF Rx Instructions: apply to single knee, elbow, wrist or hand; for hand includes palm/fingers/back of hand No Action polyethylene glycol 3350 17 gram/dose powder 17 g PO DAILY PRN rosuvastatin [Crestor] 5 mg tablet 5 mg PO DAILY budesonide-formoterol [Symbicort] 160-4.5 mcg/actuation HFA aerosol inhaler 2 puff inhalation BID nicotine [Nicoderm CQ] 1 EACH patch 24 hour 1 ea Transdermal DAILY epinephrine 0.3 mg/0.3 mL auto-injector 0.3 mg IM ONCE Rx Instructions: as a single dose; may repeat once apple cider vinegar 600 mg capsule 1,200 mg PO DAILY celecoxib 200 mg capsule 200 mg PO DAILY hydrochlorothiazide 50 mg tablet 50 mg PO DAILY PRN losartan 25 MG tablet 100 mg PO QAM albuterol sulfate 90 mcg/actuation HFA aerosol inhaler 2 inh INHALATION Q4-5H PRN Patient Comments: INHALE 2 PUFFS BY MOUTH EVERY 4 HOURS NEEDED Discharge Instructions Instructions: Knee Pain ED Additional Instructions: You were seen in the emergency department today for evaluation of knee pain and were found to have degenerative changes on your x-ray imaging concerning for wear and tear as the cause of your pain. In our department you do full physical examination performed, received medications for pain and I do recommend that you continue to use Tylenol and ibuprofen for pain management. I provided you with a prescription for diclofenac gel which you can trial in the area of maximal pain. If you use this medication I recommend that you stop ibuprofen as they are in the same class of medications. You need to follow-up with orthopedics for reevaluation and I did provide you with a hinged knee brace to wear for comfort. Please follow-up with your primary care provider in the next few days to discuss this visit and any symptoms that change, worsen, or persist. Thank you for allowing us to be part of your care. Referrals: Van Gomez MD [ [facility]YSICIAN] - 2 weeks Discharge Data Discharge Date/Time-TO BE ENTERED AT DEPARTURE: 11/02/24 12:13 HPI General Mode of arrival: ambulatory . Date/Time Provider Initiated Documentation: 11/02/24 10:20 . Limitations to Documentation: no limitations . Information obtained by: patient and old records reviewed . HPI Narrative: HPI: This is a 59-year-old female patient presenting for evaluation of right knee pain. The patient reports that for the last week she has had pain in the medial aspect of her knee and feels clicking when she walks. Her knee is most comfortable when she has it extended, states that there is pain when she flexes or extends it or bears weight. She did not sustain any trauma or injury, but is worried that she has some swelling of the medial aspect of her knee/distal thigh. She states that she has never had problems with this knee before, denies numbness, tingling, or weakness distal to this injury. Has been using Tylenol and ibuprofen for management of pain, last dose 1 AM Exam: Gen: Awake and alert, in no apparent distress HEENT: Non-icteric sclera Neck: Supple Lungs: No apparent respiratory distress, normal respiratory effort. CV: Appears well perfused, strong distal pulses Abdomen: Non-distended MSK: Moves 4 extremities without apparent limitation in ROM with the exception of the right knee. There is no overlying redness or swelling, the patient has pain with active range of motion, as well as tenderness along the medial joint line. No palpable joint effusion, no tenderness to palpation over the quadriceps or patellar tendons, the patella, lateral joint line or popliteal fossa. The patient does not tolerate ligamentous or meniscal testing due to pain. The patient has a strong DP pulse and preserved strength and sensation distally to this injury Skin: Visualized skin without rashes, cyanosis. Neuro: Antalgic gait, no obvious focal deficits or facial asymmetry. Speaks in full, clear sentences. Psych: Appropriate for situation. MDM: This is a 59-year-old female patient presenting for evaluation of right knee pain. Differential includes but is not limited to osteoarthritis/[id number], certainly considered fracture dislocation, meniscal injury, internal derangement, I have a very low concern for septic joint given the reassuring examination and lack of trauma or skin infection. No evidence for neurovascular derangement. We will provide the patient with a dose of Tylenol and ibuprofen and proceed with x-ray imaging of the affected right knee ED Course: I reviewed the patient's x-ray, which does show prominent degenerative changes including bone spurring, joint narrowing, and loose bodies of the right medial knee. No joint effusion. I provided the patient with a hinged knee brace for comfort and support, recommended Tylenol and ibuprofen, or Tylenol and diclofenac gel. I placed a referral for orthopedics, and at this time, the patient has had a full medical evaluation and is safe for discharge to home. They are hemodynamically stable, ambulatory, and tolerating PO. They are understanding of the follow-up plan and return precautions. They left our facility without incident. Shira Gusman MD Related Data Home Medications ?Medication ?Instructions ?Recorded ?Confirmed nicotine 14 mg/24 hr daily 1 ea transdermal DAILY 11/17/16 11/02/24 transdermal patch (Nicoderm CQ) losartan 25 mg tablet 100 mg PO QAM 09/06/18 11/02/24 albuterol sulfate 90 mcg/actuation 2 inh inhalation Q4-5H PRN 03/09/21 11/02/24 aerosol inhaler apple cider vinegar 600 mg capsule 1,200 mg PO DAILY 05/14/22 11/02/24 epinephrine 0.3 mg/0.3 mL 0.3 mg IM ONCE 05/14/22 11/02/24 injection, auto-injector budesonide-formoterol HFA 160 2 puff inhalation BID 07/08/23 11/02/24 mcg-4.5 mcg/actuation aerosol inhaler (Symbicort) polyethylene glycol 3350 17 17 g PO DAILY PRN 07/08/23 11/02/24 gram/dose oral powder rosuvastatin 5 mg tablet (Crestor) 5 mg PO DAILY 07/08/23 11/02/24 celecoxib 200 mg capsule 200 mg PO DAILY 09/29/23 11/02/24 hydrochlorothiazide 50 mg tablet 50 mg PO DAILY PRN 09/29/23 11/02/24 diclofenac sodium 1 % topical gel 2 g topical QID #100 grams 11/02/24 Previous Rx's ?Medication ?Instructions ?Recorded diclofenac sodium 1 % topical gel 2 g topical QID #100 grams 11/02/24 Allergies Allergy/AdvReac Type Severity Reaction Status Date / Time Penicillins Allergy Intermediate Hives, Verified 11/02/24 10:19 nausea adhesive tape Allergy rash Verified 11/02/24 10:19 atorvastatin Allergy rash Verified 11/02/24 10:19 bees Allergy Severe Anaphylaxis Uncoded 11/02/24 10:19 egg yolks Allergy mouth Uncoded 11/02/24 10:19 itching General Stated Complaint: Orthopedic CELESTE: 4 Course Vital Signs Vital signs: Vital Signs Pulse 102 H 11/02/24 10:13 Respiratory Rate 16 11/02/24 10:13 Blood Pressure 149/78 H 11/02/24 10:13 Pulse Oximetry 96 11/02/24 10:13 Pulse 102 H 11/02/24 10:13 Respiratory Rate 16 11/02/24 10:13 Blood Pressure 149/78 H 11/02/24 10:13 Blood Pressure Position Sitting 11/02/24 10:13 Pulse Oximetry 96 11/02/24 10:13 Oxygen Delivery Method Room Air 11/02/24 10:13 Oxygen Flow Rate 0 11/02/24 10:13 Pain Level 9 11/02/24 10:13 Medical Decision Making Quality:SDOH Health Related Social Needs: No Data to Display PFSH All Active Problems (Updated 11/02/24 @ 11:46 by Shira Gusman MD) Degenerative joint disease of knee, right (Acute) Pain in right knee (Acute) Left axillary pain (Acute) Chest pain of unknown etiology (Acute) Aneurysm of descending aorta (Acute) Chronic kidney disease (Chronic) Screening for colon cancer (Acute) Arthritis of wrist, left (Acute) Mixed stress and urge urinary incontinence (Acute) Microscopic hematuria (Acute) Axillary mass (Acute) Chest pain (Acute) Medical History (Updated 11/02/24 @ 11:46 by Shira Gusman MD) Joint pain Pain, wrist Sleep pattern disturbance Hx of substance abuse Hand pain, left Chest wall mass Wheezing Obesity Cough Multiple nevi Tonsillar hypertrophy Axillary abscess Dermatitis Pain in left shoulder Pain in right shoulder Hypertension Menopause Multiple joint pain Hand numbness Maxillary sinus cyst Adenoid hypertrophy Disorder of vocal cord Hernia Community acquired pneumonia Chronic cough Constipation Peripheral edema Amenorrhea HLD (hyperlipidemia) Agoraphobia with panic attacks Metabolic brain syndrome Hepatitis C Smoker Lymphadenitis Hematuria Pharyngitis URI (upper respiratory infection) Right wrist effusion Depression Rheumatoid arthritis Arthritis of right wrist Scapholunate dissociation of right wrist Arthritis of carpometacarpal (CMC) joint of right thumb Contraceptive surveillance, unspecified (10/31/13) Unspecified essential hypertension (06/30/12) Menstrual irregularity (06/30/12) Surgical History Fracture of scaphoid of right wrist with nonunion S/P tomorrow carpectomy: 03/15/2020 History of bunionectomy History of knee surgery Cholecystectomy Social History Smoking/Tobacco Use Status: Current every day Tobacco Type: cigarettes Smoking risk assessment performed?: Yes Alcohol Intake: current Alcohol Intake frequency: holidays/special occasions only Alcohol type: wine Drug use: Current Sobriety Substance use type: former substance user Current gender identity: female Do you feel safe at home: Yes Do you feel safe in your relationship?: Yes
[2024-11-02] MEDS: Acetaminophen 500 MG TAB 1000 MG PO (10:41)
[2024-11-02] MEDS: Ibuprofen 600 MG TAB PO (10:42)
--- NOTE | 2024-11-02 11:22 | DI.RAD_ITS ---
Exam(s) XR KNEE RT 3V AP,LAT,PRIYA EXAM: XR KNEE RT 3V AP,LAT,PRIYA CLINICAL HISTORY: medial joint line pain and clicking, no trauma. TECHNIQUE: 2D digital imaging was performed. Three views. COMPARISON: CR RIGHT KNEE LIMITED 1 OR 2 VIEW from 08/19/2012 FINDINGS: BONES: No acute fracture is present. No bony destructive lesion is seen. JOINTS: Moderate narrowing of the medial femoral tibial joint space. Prominent periarticular spurrin g throughout. Prominent enthesophyte at the quadriceps insertion on the patella. Posterior old dens ities could represent loose bodies. No joint effusion is seen. SOFT TISSUE: Normal. IMPRESSION: Degenerative change greatest of the medial femoral tibial joint. Question of posterior joint space l oose bodies. DATA REPOSITORY: RADIATION DOSE DELIVERED:
[2024-11-02 12:06] VITALS: BP 125/84; PULSE 99; RESP 15; TEMP 37.1; O2SAT 98
--- NOTE | 2024-11-20 09:52 | NUR.NOTE ---
Accessed Pt chart to print the providers notes for [facility]
--- NOTE | 2024-11-22 13:00 | NUR.NOTE ---
Accessed patient chart to print provider note to be faxed to [facility] for billing purposes. Nursing Note:
== END 2024-11-02 12:13 | disposition home or self-care (01) ==
PROVIDERS: Emergency Provider Emergency Medicine; PCP Nurse Practitioner Family
DX: M17.11 Unilateral primary osteoarthritis, right knee (principal); I10 Essential (primary) hypertension
CPT/HCPCS: 73562; 99283